=== PATIENT | female | born 1965 | race Caucasian/White ===

== ENCOUNTER → 2016-08-01 | Outpatient (CLI) | payer MEDICARE, MEDICAID | LOC: WI 11:25 | PROVIDERS: ATTEND Physician Assistant | DX: Z12.31 Encounter for screening mammogram for malignant neoplasm of breast (principal) | CPT/HCPCS: 77067; G0202 ==

== ENCOUNTER → 2016-11-21 | Outpatient (CLI) | payer MEDICARE, MEDICAID ==
--- NOTE | 2016-11-21 15:28 | RADIOLOGY REPORT (SQ) ---
EXAM DESCRIPTION: BARIUM SWALLOW ESOPHAGUS COMPLETED DATE/TIME: 11/21/2016 10:13 am REASON FOR STUDY: GERD K21.0 GASTRO-ESOPHAGEAL REFLUX DISEASE WITH ESOPHAGITIS COMPARISON: None. TECHNIQUE: Under fluoroscopic guidance, patient ingested thick and thin barium. Fluoroscopic spot im ages acquired and stored on PACS. 12 MM BARIUM TABLET GIVEN: The patient swallowed a 12 mm barium tablet, which passed easily through t he esophagus and into the stomach without delay. LIMITATIONS: Patient unable to stand for procedure. FLUOROSCOPY TIME: Fluoro time 2.08 minutes 10 images saved to PACS. FINDINGS: NEUROMUSCULAR COORDINATION OF SWALLOW: Normal. No aspiration. ESOPHAGEAL MOTILITY: Mild esophageal dysmotility. ESOPHAGEAL MUCOSA: Normal mucosa without masses or ulceration. GASTRO-ESOPHAGEAL JUNCTION: Questionable small hiatal hernia. No gastroesophageal reflux seen. NON-GI TRACT STRUCTURES: No significant finding. OTHER: No other significant finding. IMPRESSION: MILD ESOPHAGEAL DYSMOTILITY. QUESTIONABLE SMALL HIATAL HERNIA. OTHERWISE UNREMARKABLE STUDY. COMMENT: NONE Quality ID [id number]: Final reports for procedures using fluoroscopy that document radiation exposure eveline elly, or exposure time and number of fluorographic images (if radiation exposure indices are not avail able) TECHNICAL DOCUMENTATION: JOB ID: [id number] [employer]- All Rights Reserved
== END ==
LOC: RAD 09:18
PROVIDERS: ATTEND Physician Assistant
DX: K21.0 Gastro-esophageal reflux disease with esophagitis (principal)
CPT/HCPCS: 74220

== ENCOUNTER → 2016-11-24 | Outpatient (CLI) | payer MEDICARE, MEDICAID ==
--- NOTE | 2016-11-24 13:02 | RADIOLOGY REPORT (SQ) ---
EXAM DESCRIPTION: FOOT LEFT COMPLETE COMPLETED DATE/TIME: 11/24/2016 11:53 am REASON FOR STUDY: PAIN IN LEFT FOOT M79.672 PAIN IN LEFT FOOT COMPARISON: None. NUMBER OF VIEWS: Three views. TECHNIQUE: AP, lateral and oblique radiographic images acquired of the left foot. LIMITATIONS: None. FINDINGS: MINERALIZATION: Normal. BONES: No acute fracture or dislocation. No worrisome bone lesions. JOINTS: No effusions. SOFT TISSUES: Possible hammertoes involving 2nd through 5th digits. OTHER: No other significant finding. IMPRESSION: Possible hammertoes. No acute osseous abnormality is seen. TECHNICAL DOCUMENTATION: JOB ID: [id number] [employer]- All Rights Reserved
== END ==
LOC: OD 11:25
PROVIDERS: ATTEND Physician Assistant
DX: M79.672 Pain in left foot (principal)

== ENCOUNTER 2017-01-08 11:40 | Day surgery (SDC) | payer MEDICARE, MEDICAID ==
[~2017-01-08 11:40] MED LIST: PROPOFOL INJ 200 MG/20 ML VIAL IV ONE
[2017-01-08 13:12] VITALS: BP 128/86
--- NOTE | 2017-01-08 13:24 | Operative Report ---
Operative Report DATE OF SURGERY: 01/08/17 Operative Report: The risks benefits and alternatives of the procedure explained to the patient in detail and informed consent is obtained. A GIF Olympus video scope was inserted into the patient's mouth and hypopharynx, the esophagus is identified intubated and insufflated, the scope was then advanced through the esophagus stomach and duodenum, retroflexion maneuver is done, the esophagus stomach and first and second portions of the duodenum examined PREOPERATIVE DIAGNOSIS: Dysphagia, epigastric pain POSTOPERATIVE DIAGNOSIS: Schatzki's ring status post dilatation. Esophagitis versus Butler's small biopsy obtained. Gastritis small biopsy obtained to rule out Helicobacter pylori OPERATION: EGD with dilation. EGD with biopsy SURGEON: MAXI GASTON ANESTHESIA: LMAC TISSUE REMOVED OR ALTERED: As described above. COMPLICATIONS: None. ESTIMATED BLOOD LOSS: None. INTRAOPERATIVE FINDINGS: As described above. PROCEDURE: Patient tolerated procedure well. No immediate postprocedure complications are noted. Patient discharged in good condition. Discharge date 01/08/2017. Discharge diet: Regular. Discharge activity: Regular. 2-3 week follow-up to discuss findings. Patient is instructed to call the office or proceed to the emergency room should there be any further problems or questions. If negative may need manometry study. We will wait on biopsies.
== END 2017-01-08 13:20 | disposition home or self-care (01) ==
LOC: END 11:40
PROVIDERS: ATTEND Internal Medicine Gastroenterology
PROC: 0DB58ZX Excision of Esophagus, Via Natural or Artificial Opening Endoscopic, Diagnostic (ICD-10-PCS; 2017-01-08)
PROC: 0DB68ZX Excision of Stomach, Via Natural or Artificial Opening Endoscopic, Diagnostic (ICD-10-PCS; principal; 2017-01-08 13:00)
DX: K22.2 Esophageal obstruction (principal); K20.8 Other esophagitis; K29.50 Unspecified chronic gastritis without bleeding; E11.9 Type 2 diabetes mellitus without complications; J45.909 Unspecified asthma, uncomplicated; E03.9 Hypothyroidism, unspecified; I10 Essential (primary) hypertension; G80.9 Cerebral palsy, unspecified; F31.9 Bipolar disorder, unspecified; F41.9 Anxiety disorder, unspecified; R63.4 Abnormal weight loss; Z79.82 Long term (current) use of aspirin; Z79.899 Other long term (current) drug therapy; Z79.51 Long term (current) use of inhaled steroids; Z79.1 Long term (current) use of non-steroidal anti-inflammatories (NSAID); Z79.84 Long term (current) use of oral hypoglycemic drugs; Z88.1 Allergy status to other antibiotic agents; Z79.4 Long term (current) use of insulin; Z68.24 Body mass index [BMI] 24.0-24.9, adult
CPT/HCPCS: 43239; 82962; 88342 ×2; 88302 ×2; J2704; 740

== ENCOUNTER → 2017-07-11 | Outpatient (CLI) | payer MEDICAID, MEDICARE ==
--- NOTE | 2017-07-11 16:39 | RADIOLOGY REPORT (SQ) ---
EXAM DESCRIPTION: U/S THYROID/SFT TISS HD NECK COMPLETED DATE/TIME: 07/11/2017 12:17 pm REASON FOR STUDY: HYPOTHYROIDISM, UNSPECIFIED E03.9 HYPOTHYROIDISM, UNSPECIFIED COMPARISON: None. TECHNIQUE: Dynamic and static blunt-scale images acquired of the thyroid gland. Selected additional c olor/power Doppler images recorded. All images stored to PACS. LIMITATIONS: None. FINDINGS: RIGHT LOBE: Less than 1 cm. No cystic or solid masses. LEFT LOBE: Less than 1 cm. No cystic or solid masses. ISTHMUS: Normal size. Homogeneous echotexture. No cystic or solid masses. OTHER: No other significant finding. IMPRESSION: Atrophic thyroid. TECHNICAL DOCUMENTATION: JOB ID: [id number] [employer]- All Rights Reserved
== END ==
LOC: RAD 09:58
PROVIDERS: ATTEND Physician Assistant
DX: E03.9 Hypothyroidism, unspecified (principal)
CPT/HCPCS: 76536

== ENCOUNTER 2017-08-03 07:46 | Day surgery (SDC) | payer MEDICARE, MEDICAID ==
[2017-08-03] MEDS ORDERED: NA PHOS,M-B/NA PHOS,DI-BA (ADULT) 133 ML ENEMA PR ONE ×2 (09:30→11:00)
[2017-08-03] MEDS ORDERED: PROPOFOL INJ 200 MG/20 ML VIAL IV ONE (10:13)
[2017-08-03] MEDS ORDERED: MIDAZOLAM 2 MG/2 ML INJ ONE (10:13)
[2017-08-03] MEDS ORDERED: MORPHINE SULFATE 10 MG/ML INJ IV PRN (10:42)
[2017-08-03] MEDS ORDERED: ONDANSETRON HCL INJ/PF 4 MG/2 ML SDV IV PRN (10:42)
[2017-08-03] MEDS ORDERED: DIPHENHYDRAMINE HCL 50 MG/ML VIAL IV PRN (10:42)
[2017-08-03] MEDS ORDERED: MEPERIDINE HCL/PF INJ 25 MG/1 ML DISP.SYRIN IV PRN (10:42)
[2017-08-03] MEDS ORDERED: OXYCODONE-ACETAMINOPHEN 5-325 MG TABLET PO PRN ×2 (10:42)
[2017-08-03] MEDS ORDERED: PROMETHAZINE HCL INJ 25 MG/1 ML VIAL IV PRN ×2 (10:42)
[2017-08-03] MEDS ORDERED: FENTANYL CITRATE INJ/PF 100 MCG/2 ML AMPUL IV PRN ×3 (10:42)
--- NOTE | 2017-08-03 11:22 | Operative Report ---
Operative Report DATE OF SURGERY: 08/03/17 Operative Report: The risks, benefits and alternatives of the procedure including risks of bleeding, perforation requiring surgery are explained to the patient in detail and informed consent is obtained. Patient was taken back to the operating room and placed in a left, lateral decubital position. Timeout was called. Propofol medications administered. Rectal examination is done which did not reveal any masses, tears or fissures. An Olympus videoscope was inserted into the patient's rectum. The scope was then carefully advanced all the way to the cecum. The cecum was identified by the usual anatomical landmarks including the ileocecal valve as well as the appendiceal office. Photodocumentation is obtained per scope was then sequentially pulled back via the various segments of the colon including the ascending colon, hepatic flexure, transverse colon, splenic flexure, descending colon and finding to the rectosigmoid portions of the colon. Retroflexion maneuvers performed. Prep is good. PREOPERATIVE DIAGNOSIS: Change in bowel habits rule out colonic stricture POSTOPERATIVE DIAGNOSIS: Mild inflammation noted in the colon status post biopsy rule out lymphocytic, microscopic, collagenous colitis. OPERATION: Colonoscopy with biopsy SURGEON: MAXI GASTON ANESTHESIA: LMAC TISSUE REMOVED OR ALTERED: As noted above. COMPLICATIONS: None. ESTIMATED BLOOD LOSS: None. INTRAOPERATIVE FINDINGS: As noted above. PROCEDURE: Patient tolerated procedure well. No immediate postprocedure complications are noted. Patient discharged in good condition. Discharge date 08/03/2017. Discharge diet: Regular. Discharge activity: Regular. 2-3 week follow-up to discuss findings. Patient is instructed call the office or call the emergency room should there be any further problems or questions. We will wait on pathology.
[2017-08-03 13:06] VITALS: BP 158/74
== END 2017-08-03 12:57 | disposition home or self-care (01) ==
LOC: OROUT 07:46
PROVIDERS: ATTEND Internal Medicine Gastroenterology
PROC: 0DBF8ZX Excision of Right Large Intestine, Via Natural or Artificial Opening Endoscopic, Diagnostic (ICD-10-PCS; principal; 2017-08-03 10:00)
DX: K52.9 Noninfective gastroenteritis and colitis, unspecified (principal); E11.9 Type 2 diabetes mellitus without complications; J45.909 Unspecified asthma, uncomplicated; E03.9 Hypothyroidism, unspecified; I10 Essential (primary) hypertension; G80.9 Cerebral palsy, unspecified; Z79.51 Long term (current) use of inhaled steroids; Z79.82 Long term (current) use of aspirin; Z79.1 Long term (current) use of non-steroidal anti-inflammatories (NSAID); Z79.4 Long term (current) use of insulin; Z79.84 Long term (current) use of oral hypoglycemic drugs; Z79.899 Other long term (current) drug therapy
CPT/HCPCS: 45380; 82962; 88305 ×2; 88313 ×2; J2250; A9270; J2704; 811; J3490

== ENCOUNTER 2017-09-27 11:22 | Emergency (ER) | payer MEDICARE, MEDICAID ==
[2017-09-27 12:51] LABS: ABSOLUTE EOSINOPHILS # (AUTO) 0.3 10^3/uL (0.0-0.6); ABSOLUTE LYMPHOCYTES (AUTO) 2.8 10^3/uL (0.5-4.7); ABSOLUTE MONOCYTES (AUTO) 0.8 10^3/uL (0.1-1.4); ABSOLUTE NEUT (AUTO) 7.5 10^3/uL (1.7-8.2); BASOPHILS % (AUTO) 0.3 % (0-2); EOSINOPHILS % (AUTO) 2.6 % (0-6); HEMATOCRIT 35.8 % (36.0-47.0); HEMOGLOBIN 11.4 g/dL (12.0-15.5); LYMPHOCYTES % (AUTO) 24.5 % (13-45); MEAN CORPUSCULAR HEMOGLOBIN 24.7 pg (27.0-33.4); MEAN CORPUSCULAR HGB CONC 31.9 g/dL (32.0-36.0); MEAN CORPUSCULAR VOLUME 78 fl (80-97); MONOCYTES % (AUTO) 7.1 % (3-13); PLATELET COUNT 237 10^3/uL (150-450); RED BLOOD COUNT 4.62 10^6/uL (3.72-5.28); RED CELL DISTRIBUTION WIDTH 14.2 % (11.5-14.0); SEGMENTED NEUTROPHILS % (AUTO) 65.5 % (42-78); TOTAL CELLS COUNTED % (AUTO) 100 %; WHITE BLOOD COUNT 11.4 10^3/uL (4.0-10.5)
[2017-09-27 13:11] LABS: ANION GAP 13 (5-19); BLOOD UREA NITROGEN 25 mg/dL (7-20); CALCIUM 9.2 mg/dL (8.4-10.2); CARBON DIOXIDE 21 mmol/L (22-30); CHLORIDE 103 mmol/L (98-107); GLUCOSE 148 mg/dL (75-110); SODIUM 137.3 mmol/L (137-145)
[2017-09-27 13:15] LABS: POTASSIUM 6.1 mmol/L (3.6-5.0)
[2017-09-27] MEDS ORDERED: NORMAL SALINE 1000 ML 1,000 ML IV ONE ×4 (13:50→21:43)
[2017-09-27] MEDS ORDERED: ALBUTEROL SULFATE 0.083% NEB 2.5 MG/3 ML AMPUL NEB ONE (14:02)
[2017-09-27] MEDS ORDERED: SODIUM POLYSTYRENE SULFONATE 15 GM/60 ML PO ONE (14:03)
--- NOTE | 2017-09-27 14:16 | ER Document Report ---
ED General - General Chief Complaint: Abnormal Lab Results Stated Complaint: ABNORMAL LABS Time Seen by Provider: 09/27/17 12:21 TRAVEL OUTSIDE OF THE [place] IN LAST 30 DAYS: No - HPI Patient complains to provider of: Elevated potassium Notes: Patient coming in for elevated potassium. Patient has some chronic disability caregiver at bedside states that the patient has recently been on Bactrim for urinary tract infection finished her last antibiotic today. Have basic laboratory studies performed in the PCPs office Dr. Reaves yesterday was found to have an elevated potassium greater than 6 therefore was told to come to the ER for further evaluation. Patient denies any other medical issues resting comfortably asking for something to eat and drink. - Related Data Allergies/Adverse Reactions: cranberry Allergy (Severe, Verified 08/03/17 08:12) VOMITING lamotrigine [From Lamictal] Allergy (Severe, Verified 08/03/17 08:12) Anaphylaxis levofloxacin [From Levaquin] Allergy (Severe, Verified 08/03/17 08:12) Anaphylaxis Past Medical History - Social History Smoking Status: Never Smoker Family History: Reviewed & Not Pertinent Patient has suicidal ideation: No Patient has homicidal ideation: No - Past Medical History Cardiac Medical History: Reports: Hx Hypertension Denies: Hx Coronary Artery Disease, Hx Heart Attack Pulmonary Medical History: Reports: Hx Asthma Denies: Hx Bronchitis, Hx COPD, Hx Pneumonia Neurological Medical History: Denies: Hx Cerebrovascular Accident, Hx Seizures Renal/ Medical History: Denies: Hx Peritoneal Dialysis Musculoskeltal Medical History: Denies Hx Arthritis Past Surgical History: Reports: Hx Hysterectomy - Immunizations Hx Diphtheria, Pertussis, Tetanus Vaccination: No Review of Systems - Review of Systems Constitutional: Other - Elevated potassium EENT: No symptoms reported Cardiovascular: No symptoms reported Respiratory: No symptoms reported Gastrointestinal: No symptoms reported Genitourinary: No symptoms reported Female Genitourinary: No symptoms reported Musculoskeletal: No symptoms reported Skin: No symptoms reported Hematologic/Lymphatic: No symptoms reported Neurological/Psychological: No symptoms reported Physical Exam - Vital signs Vitals: Temp Pulse Resp BP Pulse Ox 97.9 F 104 H 18 113/94 H 99 09/27/17 11:32 09/27/17 11:32 09/27/17 11:32 09/27/17 11:32 09/27/17 11:32 Interpretation: Normal - General General appearance: Appears well, Alert - HEENT Head: Normocephalic, Atraumatic Eyes: Normal Pupils: PERRL - Respiratory Respiratory status: No respiratory distress Chest status: Nontender Breath sounds: Normal Chest palpation: Normal - Cardiovascular Rhythm: Regular Heart sounds: Normal auscultation Murmur: No - Abdominal Inspection: Normal Distension: No distension Bowel sounds: Normal Tenderness: Nontender Organomegaly: No organomegaly - Back Back: Normal, Nontender - Extremities General upper extremity: Nontender. No: Normal inspection - Chronic contractures of the upper and lower extremities General lower extremity: Normal inspection, Nontender - Neurological Neuro grossly intact: Yes Cognition: Normal Marija Coma Scale Eye Opening: Spontaneous Marija Coma Scale Verbal: Oriented Marija Coma Scale Motor: Obeys Commands Marija Coma Scale Total: 15 - Psychological Associated symptoms: Normal affect, Normal mood - Skin Skin Temperature: Warm Skin Moisture: Dry Skin Color: Normal Course - Re-evaluation Re-evalutation: 09/27/17 15:22 Laboratory studies showed potassium at this time 6.1 with no EKG changes. Did discuss with PCP recommended IV hydration Kayexalate and repeat potassium for possible discharge home. Patient agrees with this plan at this time patient has received a liter of fluids and Kayexalate. Currently waiting for repeat - Vital Signs Vital signs: Temp Pulse Resp BP Pulse Ox 98.1 F 104 H 25 H 128/88 H 99 09/28/17 00:00 09/27/17 11:32 09/28/17 00:00 09/28/17 00:00 09/28/17 00:00 - Laboratory Result Diagrams: 09/27/17 12:44 09/27/17 22:00 Laboratory results interpreted by me: 09/27/17 09/27/17 09/27/17 12:44 12:44 15:22 WBC 11.4 H Hgb 11.4 L Hct 35.8 L MCV 78 L MCH 24.7 L MCHC 31.9 L RDW 14.2 H Potassium 6.1 H* Chloride Carbon Dioxide 21 L BUN 25 H Est GFR (Non-Af Amer) 54 L Glucose 148 H Calcium Urine Glucose (UA) 50 H 09/27/17 09/27/17 17:30 22:00 WBC Hgb Hct MCV MCH MCHC RDW Potassium 5.8 H 5.3 H Chloride 108 H Carbon Dioxide 21 L BUN 23 H Est GFR (Non-Af Amer) 53 L Glucose 175 H Calcium 7.9 L Urine Glucose (UA) Discharge - Discharge Clinical Impression: Hyperkalemia Condition: Good Disposition: HOME, SELF-CARE Additional Instructions: Your laboratory results showed an elevated potassium today however the medications that we gave you here in ER were able to lower your potassium to a safe level. Highly recommend she follow-up with your primary care physician in the next 24-48 hours for reevaluation. Return to ER for any other concerns. Referrals: CARA REAVES MD [Primary Care Provider] - Follow up as needed
[2017-09-27 15:52] LABS: APPEARANCE,URINE CLEAR; BILIRUBIN,URINE NEGATIVE (NEGATIVE); COLOR,URINE STRAW; GLUCOSE, URINE 50 mg/dL (NEGATIVE); KETONES,URINE NEGATIVE (NEGATIVE); LEUKOCYTE ESTERASE,URINE NEGATIVE (NEGATIVE); NITRITE,URINE NEGATIVE (NEGATIVE); PROTEIN,URINE NEGATIVE (NEGATIVE); URINE SPECIFIC GRAVITY 1.006; UROBILINOGEN,URINE NEGATIVE mg/dL (<2.0)
[2017-09-27 18:04] LABS: ANION GAP 14 (5-19); BLOOD UREA NITROGEN 23 mg/dL (7-20); CARBON DIOXIDE 22 mmol/L (22-30); CHLORIDE 106 mmol/L (98-107); GLUCOSE 81 mg/dL (75-110); POTASSIUM 5.8 mmol/L (3.6-5.0); SODIUM 142.3 mmol/L (137-145)
--- NOTE | 2017-09-27 18:19 | ER Document Report ---
Doctor's Note Notes: 09/27/17 18:17 Patient was signed out to me around 1600. Her initial potassium was elevated she received IV fluids, albuterol, and Kayexalate. Repeat potassium is only down to 5.8, BUN is essentially unchanged with creatinine actually higher than earlier. Having the nurse reviewed the medication records it appears the patient got 1 L of IV fluid and is receiving the second liter at only 150 mL's per hour. This is probably why she continues to be just as dehydrated as she was several hours ago. The normal saline that is hanging will be increased to wide open. She also will be given a liter of D5 normal saline wide open. 09/27/17 23:11 After the patient did receive IV fluids, the BUN and creatinine have improved, potassium down 5.3. She will be discharged with the original discharge instructions and advised to avoid potassium in her diet, avoid any medications containing potassium, and to drink much more fluids than she has been drinking. I asked the patient specifically about eating bananas, and she says that she likes bananas and does eat a lot of bananas. I told her to specifically avoid eating any bananas, drinking orange juice, or any other fruits that are high in potassium.
[2017-09-27] MEDS ORDERED: DEXTROSE 5%-NORMAL SALINE 1,000 ML IV ONE (18:20)
[2017-09-27 22:42] LABS: ANION GAP 11 (5-19); BLOOD UREA NITROGEN 19 mg/dL (7-20); CALCIUM 7.9 mg/dL (8.4-10.2); CARBON DIOXIDE 21 mmol/L (22-30); CHLORIDE 108 mmol/L (98-107); GLUCOSE 175 mg/dL (75-110); POTASSIUM 5.3 mmol/L (3.6-5.0); SODIUM 139.5 mmol/L (137-145)
--- NOTE | 2017-09-27 23:24 | EKG REPORT ---
SEVERITY:- BORDERLINE ECG - SINUS RHYTHM SHORT WV INTERVAL, ACCELERATED AV CONDUCTION PROBABLE LEFT ATRIAL ABNORMALITY BORDERLINE ST-T ABNORMALITIES, ANT-LAT LEADS : Confirmed by: Jose Alejandro Gleason 27-Sep-2017 23:23:05
[2017-09-28 00:33] VITALS: BP 128/88
== END 2017-09-28 | disposition home or self-care (01) ==
LOC: ER 11:22
DX: E87.5 Hyperkalemia (principal); I10 Essential (primary) hypertension; Z90.710 Acquired absence of both cervix and uterus
CPT/HCPCS: 93005; 94640; 99284; 96360; 96361; 36415; 85025; 80048; 81001; 93010; J7030; A9270

== ENCOUNTER → 2017-10-31 | Outpatient (CLI) | payer MEDICARE, MEDICAID ==
[2017-10-31 14:28] LABS: APPEARANCE,URINE SLIGHTLY-CLOUDY; BILIRUBIN,URINE NEGATIVE (NEGATIVE); COLOR,URINE YELLOW; GLUCOSE, URINE 150 mg/dL (NEGATIVE); KETONES,URINE TRACE mg/dL (NEGATIVE); LEUKOCYTE ESTERASE,URINE NEGATIVE (NEGATIVE); NITRITE,URINE NEGATIVE (NEGATIVE); PROTEIN,URINE >=500 mg/dL (NEGATIVE); URINE SPECIFIC GRAVITY 1.011; UROBILINOGEN,URINE NEGATIVE mg/dL (<2.0)
[2017-10-31 14:36] LABS: ABSOLUTE BASOPHILS # (AUTO) 0.1 10^3/uL (0.0-0.2); ABSOLUTE EOSINOPHILS # (AUTO) 0.2 10^3/uL (0.0-0.6); ABSOLUTE MONOCYTES (AUTO) 0.7 10^3/uL (0.1-1.4); ABSOLUTE NEUT (AUTO) 7.9 10^3/uL (1.7-8.2); BASOPHILS % (AUTO) 0.9 % (0-2); EOSINOPHILS % (AUTO) 1.3 % (0-6); HEMATOCRIT 37.5 % (36.0-47.0); HEMOGLOBIN 12.1 g/dL (12.0-15.5); LYMPHOCYTES % (AUTO) 25.4 % (13-45); MEAN CORPUSCULAR HEMOGLOBIN 24.6 pg (27.0-33.4); MEAN CORPUSCULAR HGB CONC 32.2 g/dL (32.0-36.0); MEAN CORPUSCULAR VOLUME 76 fl (80-97); MONOCYTES % (AUTO) 5.7 % (3-13); RED BLOOD COUNT 4.91 10^6/uL (3.72-5.28); RED CELL DISTRIBUTION WIDTH 14.9 % (11.5-14.0); SEGMENTED NEUTROPHILS % (AUTO) 66.7 % (42-78); TOTAL CELLS COUNTED % (AUTO) 100 %; WHITE BLOOD COUNT 11.8 10^3/uL (4.0-10.5)
[2017-10-31 14:38] LABS: ALANINE AMINOTRANSFERASE 21 U/L (9-52); ALBUMIN 3.7 g/dL (3.5-5.0); ALKALINE PHOSPHATASE 61 U/L (38-126); ANION GAP 15 (5-19); ASPARTATE AMINO TRANSFERASE 23 U/L (14-36); BILIRUBIN,DIRECT 0.2 mg/dL (0.0-0.4); BILIRUBIN,TOTAL 0.2 mg/dL (0.2-1.3); BLOOD UREA NITROGEN 18 mg/dL (7-20); CALCIUM 9.1 mg/dL (8.4-10.2); CARBON DIOXIDE 19 mmol/L (22-30); CHLORIDE 106 mmol/L (98-107); GLUCOSE 74 mg/dL (75-110); PHOSPHORUS 3.8 mg/dL (2.5-4.5); POTASSIUM 5.1 mmol/L (3.6-5.0); SODIUM 140.4 mmol/L (137-145); TOTAL PROTEIN 6.6 g/dL (6.3-8.2)
[2017-10-31 15:17] LABS: PLATELET COUNT 233 10^3/uL (150-450)
== END ==
LOC: OD 12:46
PROVIDERS: ATTEND Internal Medicine Nephrology
DX: E11.9 Type 2 diabetes mellitus without complications (principal); E87.5 Hyperkalemia
CPT/HCPCS: 36415; 80053; 81001; 83605; 83735; 84100; 85025

== ENCOUNTER → 2017-12-07 | Outpatient (CLI) | payer MEDICARE, MEDICAID ==
[2017-12-07 12:05] LABS: HEMATOCRIT 40.8 % (36.0-47.0); HEMOGLOBIN 13.6 g/dL (12.0-15.5); MEAN CORPUSCULAR HEMOGLOBIN 25.7 pg (27.0-33.4); MEAN CORPUSCULAR HGB CONC 33.3 g/dL (32.0-36.0); MEAN CORPUSCULAR VOLUME 77 fl (80-97); PLATELET COUNT 206 10^3/uL (150-450); RED BLOOD COUNT 5.29 10^6/uL (3.72-5.28); RED CELL DISTRIBUTION WIDTH 15.3 % (11.5-14.0); WHITE BLOOD COUNT 7.7 10^3/uL (4.0-10.5)
[2017-12-07 12:22] LABS: ALANINE AMINOTRANSFERASE 21 U/L (9-52); ALBUMIN 3.8 g/dL (3.5-5.0); ALKALINE PHOSPHATASE 89 U/L (38-126); ANION GAP 13 (5-19); ASPARTATE AMINO TRANSFERASE 23 U/L (14-36); BILIRUBIN,DIRECT 0.2 mg/dL (0.0-0.4); BILIRUBIN,TOTAL 0.2 mg/dL (0.2-1.3); BLOOD UREA NITROGEN 15 mg/dL (7-20); CALCIUM 9.7 mg/dL (8.4-10.2); CARBON DIOXIDE 26 mmol/L (22-30); CHLORIDE 99 mmol/L (98-107); CREATINE KINASE 61 U/L (30-135); GLUCOSE 220 mg/dL (75-110); POTASSIUM 4.3 mmol/L (3.6-5.0); SODIUM 138.1 mmol/L (137-145); TOTAL PROTEIN 6.6 g/dL (6.3-8.2)
[2017-12-07 12:51] LABS: APPEARANCE,URINE CLEAR; BILIRUBIN,URINE NEGATIVE (NEGATIVE); COLOR,URINE YELLOW; GLUCOSE, URINE >=500 mg/dL (NEGATIVE); KETONES,URINE NEGATIVE (NEGATIVE); LEUKOCYTE ESTERASE,URINE MODERATE (NEGATIVE); NITRITE,URINE NEGATIVE (NEGATIVE); PROTEIN,URINE 100 mg/dL (NEGATIVE); URINE SPECIFIC GRAVITY 1.007; UROBILINOGEN,URINE NEGATIVE mg/dL (<2.0)
[2017-12-07 13:13] LABS: UR PRO/CREAT RATIO RESULT 6.2 mg/mg (0.0-0.2); URINE CREATININE 19.6 mg/dL (15-278); URINE PROTEIN 121.8 mg/dL (<12)
== END ==
LOC: OD 11:13
PROVIDERS: ATTEND Internal Medicine Nephrology
DX: I12.9 Hypertensive chronic kidney disease with stage 1 through stage 4 chronic kidney disease, or unspecified chronic kidney disease (principal); N18.2 Chronic kidney disease, stage 2 (mild); R80.9 Proteinuria, unspecified; E87.5 Hyperkalemia; E11.9 Type 2 diabetes mellitus without complications
CPT/HCPCS: 36415; 80053; 81001; 82550; 82570; 84156; 85027

== ENCOUNTER → 2018-01-11 | Outpatient (CLI) | payer MEDICARE, MEDICAID ==
[2018-01-11 12:40] LABS: APPEARANCE,URINE SLIGHTLY-CLOUDY; BILIRUBIN,URINE NEGATIVE (NEGATIVE); COLOR,URINE YELLOW; GLUCOSE, URINE >=500 mg/dL (NEGATIVE); KETONES,URINE NEGATIVE (NEGATIVE); LEUKOCYTE ESTERASE,URINE SMALL (NEGATIVE); NITRITE,URINE NEGATIVE (NEGATIVE); PROTEIN,URINE 100 mg/dL (NEGATIVE); UROBILINOGEN,URINE NEGATIVE mg/dL (<2.0)
[2018-01-11 12:48] LABS: ANION GAP 13 (5-19); BLOOD UREA NITROGEN 22 mg/dL (7-20); CALCIUM 9.2 mg/dL (8.4-10.2); CARBON DIOXIDE 23 mmol/L (22-30); CHLORIDE 98 mmol/L (98-107); GLUCOSE 341 mg/dL (75-110); POTASSIUM 4.6 mmol/L (3.6-5.0); SODIUM 134.3 mmol/L (137-145)
[2018-01-11 13:19] LABS: UR PRO/CREAT RATIO RESULT 4.3 mg/mg (0.0-0.2); URINE CREATININE 27.7 mg/dL (15-278)
== END ==
LOC: OD 11:36
PROVIDERS: ATTEND Internal Medicine Nephrology
DX: R80.9 Proteinuria, unspecified (principal); E87.5 Hyperkalemia; E11.9 Type 2 diabetes mellitus without complications
CPT/HCPCS: 36415; 80048; 81001; 82570; 84156; 87086; 87088; 87186

== ENCOUNTER → 2018-04-12 | Outpatient (CLI) | payer MEDICARE, MEDICAID ==
[2018-04-12 12:21] LABS: HEMATOCRIT 37.1 % (36.0-47.0); HEMOGLOBIN 12.5 g/dL (12.0-15.5); MEAN CORPUSCULAR HEMOGLOBIN 26.9 pg (27.0-33.4); MEAN CORPUSCULAR HGB CONC 33.7 g/dL (32.0-36.0); MEAN CORPUSCULAR VOLUME 80 fl (80-97); PLATELET COUNT 265 10^3/uL (150-450); RED BLOOD COUNT 4.63 10^6/uL (3.72-5.28); RED CELL DISTRIBUTION WIDTH 13.8 % (11.5-14.0); WHITE BLOOD COUNT 8.2 10^3/uL (4.0-10.5)
[2018-04-12 12:37] LABS: APPEARANCE,URINE CLEAR; BILIRUBIN,URINE NEGATIVE (NEGATIVE); COLOR,URINE STRAW; GLUCOSE, URINE NEGATIVE (NEGATIVE); KETONES,URINE NEGATIVE (NEGATIVE); LEUKOCYTE ESTERASE,URINE NEGATIVE (NEGATIVE); NITRITE,URINE NEGATIVE (NEGATIVE); PROTEIN,URINE 30 mg/dL (NEGATIVE); URINE SPECIFIC GRAVITY 1.004; UROBILINOGEN,URINE NEGATIVE mg/dL (<2.0)
[2018-04-12 12:48] LABS: ANION GAP 14 (5-19); BLOOD UREA NITROGEN 25 mg/dL (7-20); CALCIUM 9.8 mg/dL (8.4-10.2); CARBON DIOXIDE 23 mmol/L (22-30); CHLORIDE 101 mmol/L (98-107); GLUCOSE 75 mg/dL (75-110); POTASSIUM 5.3 mmol/L (3.6-5.0); SODIUM 138.2 mmol/L (137-145)
[2018-04-12 13:37] LABS: UR PRO/CREAT RATIO RESULT 3.4 mg/mg (0.0-0.2); URINE CREATININE 13.1 mg/dL (15-278); URINE PROTEIN 44.3 mg/dL (<12)
== END ==
LOC: OD 10:45
PROVIDERS: ATTEND Internal Medicine Nephrology
DX: R80.9 Proteinuria, unspecified (principal); E11.9 Type 2 diabetes mellitus without complications
CPT/HCPCS: 36415; 80048; 81001; 82570; 84156; 85027

== ENCOUNTER → 2018-05-10 | Outpatient (CLI) | payer MEDICARE, MEDICAID ==
--- NOTE | 2018-05-10 10:30 | WOMENS IMAGING REPORT ---
EXAM DESCRIPTION: U/S EXTREMITY NONVASCULAR COMP COMPLETED DATE/TIME: 05/10/2018 9:59 am REASON FOR STUDY: LEFT AXILLARY PAIN M79.622 PAIN IN LEFT UPPER ARM COMPARISON: None. EXAM PARAMETERS: TECHNIQUE: Dynamic and static grayscale images acquired of the localized site of cl inical concern and recorded on PACS. Additional selected color Doppler and spectral images recorded. LIMITATIONS: None. FINDINGS: SKIN AND SUBCUTANEOUS TISSUES: There are 2 small normal appearing nodes in the left axilla . No focal masses or fluid collections. DEEP SOFT TISSUES/MUSCLES: No masses. No fluid collections. No edema. VASCULAR: No increased or decreased vascularity. No occlusions. OTHER: No other significant finding. IMPRESSION: NO SOFT TISSUE MASS, FLUID COLLECTION, OR FOREIGN BODY. TECHNICAL DOCUMENTATION: JOB ID: [id number] [employer]- All Rights Reserved Reading location - IP/workstation name: [email or web address]
== END ==
LOC: WI 09:03
PROVIDERS: ATTEND Physician Assistant
DX: M79.622 Pain in left upper arm (principal)
CPT/HCPCS: 76881

== ENCOUNTER → 2018-06-28 | Outpatient (CLI) | payer MEDICARE, MEDICAID ==
[2018-06-28 11:57] LABS: APPEARANCE,URINE CLEAR; BILIRUBIN,URINE NEGATIVE (NEGATIVE); COLOR,URINE STRAW; GLUCOSE, URINE 150 mg/dL (NEGATIVE); KETONES,URINE NEGATIVE (NEGATIVE); LEUKOCYTE ESTERASE,URINE NEGATIVE (NEGATIVE); NITRITE,URINE NEGATIVE (NEGATIVE); PROTEIN,URINE 30 mg/dL (NEGATIVE); URINE SPECIFIC GRAVITY 1.005; UROBILINOGEN,URINE NEGATIVE mg/dL (<2.0)
== END ==
LOC: OD 11:12
PROVIDERS: ATTEND Internal Medicine Nephrology
DX: R30.0 Dysuria (principal)
CPT/HCPCS: 81001; 87086

== ENCOUNTER → 2018-07-01 | Outpatient (CLI) | payer MEDICARE, MEDICAID ==
--- NOTE | 2018-07-01 09:57 | RADIOLOGY REPORT (SQ) ---
EXAM DESCRIPTION: CHEST PA/LATERAL COMPLETED DATE/TIME: 07/01/2018 9:50 am REASON FOR STUDY: ASTHMA COMPARISON: None. EXAM PARAMETERS: NUMBER OF VIEWS: two views TECHNIQUE: Digital Frontal and Lateral radiographic views of the chest acquired. RADIATION DOSE: NA LIMITATIONS: none FINDINGS: LUNGS AND PLEURA: No opacities, masses or pneumothorax. No pleural effusion. MEDIASTINUM AND HILAR STRUCTURES: No masses or contour abnormalities. HEART AND VASCULAR STRUCTURES: Heart normal size. No evidence for failure. BONES: No acute findings. HARDWARE: None in the chest. OTHER: No other significant finding. IMPRESSION: 1. NO SIGNIFICANT RADIOGRAPHIC FINDING IN THE CHEST. TECHNICAL DOCUMENTATION: JOB ID: [id number] [email or web address]- All Rights Reserved Reading location - IP/workstation name: [email or web address]
[2018-07-01 10:12] LABS: ABSOLUTE MONOCYTES (AUTO) 0.5 10^3/uL (0.1-1.4); ABSOLUTE NEUT (AUTO) 3.7 10^3/uL (1.7-8.2); BASOPHILS % (AUTO) 0.2 % (0-2); EOSINOPHILS % (AUTO) 0.1 % (0-6); HEMATOCRIT 38.4 % (36.0-47.0); HEMOGLOBIN 12.8 g/dL (12.0-15.5); LYMPHOCYTES % (AUTO) 32.9 % (13-45); MEAN CORPUSCULAR HEMOGLOBIN 26.3 pg (27.0-33.4); MEAN CORPUSCULAR HGB CONC 33.4 g/dL (32.0-36.0); MEAN CORPUSCULAR VOLUME 79 fl (80-97); MONOCYTES % (AUTO) 7.7 % (3-13); PLATELET COUNT 212 10^3/uL (150-450); RED BLOOD COUNT 4.88 10^6/uL (3.72-5.28); RED CELL DISTRIBUTION WIDTH 13.5 % (11.5-14.0); SEGMENTED NEUTROPHILS % (AUTO) 59.1 % (42-78); TOTAL CELLS COUNTED % (AUTO) 100 %; WHITE BLOOD COUNT 6.2 10^3/uL (4.0-10.5)
[2018-07-01 10:40] LABS: ALANINE AMINOTRANSFERASE 26 U/L (9-52); ALBUMIN 4.1 g/dL (3.5-5.0); ALKALINE PHOSPHATASE 78 U/L (38-126); ANION GAP 6 (5-19); ASPARTATE AMINO TRANSFERASE 17 U/L (14-36); BILIRUBIN,DIRECT 0.2 mg/dL (0.0-0.4); BILIRUBIN,TOTAL 0.2 mg/dL (0.2-1.3); BLOOD UREA NITROGEN 35 mg/dL (7-20); CALCIUM 9.5 mg/dL (8.4-10.2); CARBON DIOXIDE 28 mmol/L (22-30); CHLORIDE 101 mmol/L (98-107); CHOLESTEROL 214.05 mg/dL (0-200); GLUCOSE 240 mg/dL (75-110); POTASSIUM 5.3 mmol/L (3.6-5.0); SODIUM 135.3 mmol/L (137-145); TOTAL PROTEIN 6.6 g/dL (6.3-8.2); TRIGLYCERIDES 426 mg/dL (<150)
[2018-07-01 10:52] LABS: DIRECT LDL 109 mg/dL (<100)
[2018-07-01 10:58] LABS: FREE T4 (FREE THYROXINE) 1.7 ng/dL (0.78-2.19)
[2018-07-01 11:11] LABS: THYROID STIMULATING HORMONE 0.7 uIU/mL (0.47-4.68)
== END ==
LOC: OD 09:20
PROVIDERS: ATTEND Family Medicine
DX: E11.22 Type 2 diabetes mellitus with diabetic chronic kidney disease (principal); I12.9 Hypertensive chronic kidney disease with stage 1 through stage 4 chronic kidney disease, or unspecified chronic kidney disease; N18.2 Chronic kidney disease, stage 2 (mild); E03.9 Hypothyroidism, unspecified; E55.9 Vitamin D deficiency, unspecified; J45.909 Unspecified asthma, uncomplicated; E78.5 Hyperlipidemia, unspecified
CPT/HCPCS: 36415; 71046; 80053; 80061; 82306; 83036; 84439; 84443; 85025

== ENCOUNTER 2018-08-19 13:58 | Inpatient (IN) | payer MEDICARE, MEDICAID ==
--- NOTE | 2018-08-19 14:21 | RADIOLOGY REPORT (SQ) ---
EXAM DESCRIPTION: CT HEAD WITHOUT COMPLETED DATE/TIME: 08/19/2018 2:12 pm REASON FOR STUDY: stroke s/ COMPARISON: None. TECHNIQUE: Axial images acquired through the brain without intravenous contrast. Images reviewed wi th bone, brain and subdural windows. Additional sagittal and coronal reconstructions were generated. Images stored on PACS. All CT scanners at this facility use dose modulation, iterative reconstruction, and/or weight based d osing when appropriate to reduce radiation dose to as low as reasonably achievable (ALARA). [facility]: Dose Right [facility]: CareDose [facility]: Dose Right [facility]: Teradose 4D [facility]: [facility]Park RADIATION DOSE: mGy. LIMITATIONS: None. FINDINGS: VENTRICLES: Normal size and contour. CEREBRUM: No masses. No hemorrhage. No midline shift. No evidence for acute infarction. Normal gra y/white matter differentiation. No areas of low density in the white matter. CEREBELLUM: No masses. No hemorrhage. No alteration of density. No evidence for acute infarction. EXTRAAXIAL SPACES: No fluid collections. No masses. ORBITS AND GLOBE: No intra- or extraconal masses. Normal contour of globe without masses. CALVARIUM: No fracture. PARANASAL SINUSES: No fluid or mucosal thickening. SOFT TISSUES: No mass or hematoma. OTHER: No other significant finding. IMPRESSION: NORMAL BRAIN CT WITHOUT CONTRAST. EVIDENCE OF ACUTE STROKE: NO. COMMENT: Quality ID # [id number]: Final reports with documentation of one or more dose reduction techniques (e.g., Automated exposure control, adjustment of the mA and/or kV according to patient size, use of iterative reconstruction technique) TECHNICAL DOCUMENTATION: JOB ID: [id number] [employer]- All Rights Reserved Reading location - IP/workstation name: [email or web address]
--- NOTE | 2018-08-19 14:22 | RADIOLOGY REPORT (SQ) ---
EXAM DESCRIPTION: CHEST SINGLE VIEW COMPLETED DATE/TIME: 08/19/2018 2:13 pm REASON FOR STUDY: stroke s/ COMPARISON: 07/01/2018. EXAM PARAMETERS: NUMBER OF VIEWS: One view. TECHNIQUE: Single frontal radiographic view of the chest acquired. RADIATION DOSE: NA LIMITATIONS: None. FINDINGS: LUNGS AND PLEURA: No opacities, masses or pneumothorax. No pleural effusion. MEDIASTINUM AND HILAR STRUCTURES: No masses. Contour normal. HEART AND VASCULAR STRUCTURES: Heart normal in size. Normal vasculature. BONES: No acute findings. HARDWARE: None in the chest. OTHER: No other significant finding. IMPRESSION: NO ACUTE RADIOGRAPHIC FINDING IN THE CHEST. TECHNICAL DOCUMENTATION: JOB ID: [id number] [employer]- All Rights Reserved Reading location - IP/workstation name: [email or web address]
[2018-08-19] MEDS ORDERED: DEXTROSE 50%-WATER 25 GM/50 ML DISP.SYRIN IV ONE (14:30)
[2018-08-19] MEDS ORDERED: NORMAL SALINE 1000 ML 1,000 ML IV ONE (14:31)
--- NOTE | 2018-08-19 14:32 | ER Document Report ---
ED General - General Chief Complaint: Altered Mental Status Stated Complaint: POSSIBLE STROKE Time Seen by Provider: 08/19/18 14:05 Mode of Arrival: Medic Information source: Relative Cannot obtain history due to: Mentally challenged Notes: According to the caregiver, around 12:50 PM today, patient became incoherent with speech was altered. She called EMS and when EMS arrived her blood sugar was 71. The caregiver said the patient did not eat well today. Patient is a diabetic and is taking diabetic medication. Patient is also mentally challenged and could not give history. Her who is in the room also said this supplement in the past due to her sugar dropping. Patient was given glucagon by EMS prior to arrival to the ED. The patient's caregiver Ms. Elba Du who is at the patient's bedside in the emergency room said the patient is back to her b aseline. TRAVEL OUTSIDE OF THE [place] IN LAST 30 DAYS: No - HPI Onset: Just prior to arrival Onset/Duration: Sudden Quality of pain: No pain Severity: None Pain Level: Denies Associated symptoms: None Exacerbated by: Denies Relieved by: Denies Similar symptoms previously: Yes - Due to hypoglycemia. Recently seen / treated by doctor: No - Related Data Allergies/Adverse Reactions: cranberry Allergy (Severe, Verified 08/03/17 08:12) VOMITING lamotrigine [From Lamictal] Allergy (Severe, Verified 08/03/17 08:12) Anaphylaxis levofloxacin [From Levaquin] Allergy (Severe, Verified 08/03/17 08:12) Anaphylaxis Past Medical History - Social History Smoking Status: Unknown if Ever Smoked Family History: Reviewed & Not Pertinent - Past Medical History Cardiac Medical History: Reports: Hx Hypertension Denies: Hx Coronary Artery Disease, Hx Heart Attack Pulmonary Medical History: Reports: Hx Asthma Denies: Hx Bronchitis, Hx COPD, Hx Pneumonia Neurological Medical History: Denies: Hx Cerebrovascular Accident, Hx Seizures Renal/ Medical History: Denies: Hx Peritoneal Dialysis Musculoskeletal Medical History: Denies Hx Arthritis Past Surgical History: Reports: Hx Hysterectomy - Immunizations Hx Diphtheria, Pertussis, Tetanus Vaccination: No Review of Systems - Review of Systems -: Yes ROS unobtainable due to patient's medical condition -: Yes All other systems reviewed and negative - Patient is mentally challenged and cannot give a medical history. Physical Exam - Vital signs Vitals: Pulse Resp BP Pulse Ox 87 20 130/78 H 100 03/11/19 14:02 08/19/18 14:02 08/19/18 14:02 08/19/18 14:02 Interpretation: Normal - General General appearance: Appears well, Alert In distress: None - HEENT Head: Normocephalic, Atraumatic Eyes: Normal Pupils: PERRL - Respiratory Respiratory status: No respiratory distress Chest status: Nontender Breath sounds: Normal Chest palpation: Normal - Cardiovascular Rhythm: Regular Heart sounds: Normal auscultation Murmur: No - Abdominal Inspection: Normal Distension: No distension Bowel sounds: Normal Tenderness: Nontender Organomegaly: No organomegaly - Back Back: Normal, Nontender - Extremities General upper extremity: Normal inspection, Nontender, Normal color, Normal ROM, Normal temperature General lower extremity: Normal inspection, Nontender, Normal color, Normal ROM, Normal temperature, Normal weight bearing. No: Juliann's sign - Neurological Neuro grossly intact: Yes Cognition: Normal Orientation: AAOx4 Marija Coma Scale Eye Opening: Spontaneous Maxwell Coma Scale Verbal: Oriented Maxwell Coma Scale Motor: Obeys Commands Marija Coma Scale Total: 15 Speech: Normal Motor strength normal: LUE, RUE, LLE, RLE Sensory: Normal - Psychological Associated symptoms: Normal affect, Normal mood - Skin Skin Temperature: Warm Skin Moisture: Dry Skin Color: Normal Course - Vital Signs Vital signs: Temp Pulse Resp BP Pulse Ox 98.4 F 85 23 H 128/72 H 97 08/19/18 19:07 08/19/18 19:07 08/19/18 20:00 08/19/18 20:00 08/19/18 20:00 - Laboratory Result Diagrams: 08/19/18 14:45 08/19/18 14:45 Laboratory results interpreted by me: 08/19/18 08/19/18 08/19/18 14:17 14:45 14:45 MCV 79 L MCH 26.7 L RDW 14.6 H Sodium 136.8 L Potassium 5.4 H BUN 29 H Glucose 145 H POC Glucose 133 H Urine Protein 08/19/18 15:37 MCV MCH RDW Sodium Potassium BUN Glucose POC Glucose Urine Protein 30 H - Diagnostic Test Radiology reviewed: Reports reviewed - EKG Interpretation by Me EKG shows normal: Sinus rhythm Rate: Normal - 85 Rhythm: NSR When compared to previous EKG there are: No significant change Additional EKG results interpreted by me: 08/19/18 14:48 Diffused T wave abnormalities which is unchanged from prior old EKG on 09/27/2017. - Consults Dr Mick Puga Time consulted: 16:45 Reason for consultation: 08/19/18 16:51 Dr Puga wants patient admitted to [facility] and obtain MRI and MRA of the head. Consulted provider: will see as inpatient Critical Care Note - Critical Care Note Total time excluding time spent on procedures (mins): 40 Discharge - Discharge Clinical Impression: Hypoglycemia Altered mental status Qualifiers: Altered mental status type: unspecified Qualified Code(s): R41.82 - Altered mental status, unspecified Hypertension Qualifiers: Hypertension type: unspecified Qualified Code(s): I10 - Essential (primary) hypertension Condition: Stable Disposition: ADMITTED INPATIENT Admitting Provider: Edd Unit Admitted: [facility]
[2018-08-19] MEDS ORDERED: ASPIRIN 81 MG TABLET, CHEWABLE PO ONE (14:59)
[2018-08-19 15:05] LABS: PROTHROMBIN TIME 12.7 SEC (11.4-15.4)
[2018-08-19 15:06] LABS: PARTIAL THROMBOPLASTIN TIME 26.8 SEC (23.5-35.8)
[2018-08-19 15:08] LABS: ABSOLUTE LYMPHOCYTES (AUTO) 2.5 10^3/uL (0.5-4.7); ABSOLUTE MONOCYTES (AUTO) 0.7 10^3/uL (0.1-1.4); BASOPHILS % (AUTO) 0.2 % (0-2); EOSINOPHILS % (AUTO) 0.1 % (0-6); HEMATOCRIT 37.1 % (36.0-47.0); HEMOGLOBIN 12.5 g/dL (12.0-15.5); LYMPHOCYTES % (AUTO) 24.8 % (13-45); MEAN CORPUSCULAR HEMOGLOBIN 26.7 pg (27.0-33.4); MEAN CORPUSCULAR HGB CONC 33.8 g/dL (32.0-36.0); MEAN CORPUSCULAR VOLUME 79 fl (80-97); MONOCYTES % (AUTO) 6.5 % (3-13); PLATELET COUNT 218 10^3/uL (150-450); RED BLOOD COUNT 4.69 10^6/uL (3.72-5.28); RED CELL DISTRIBUTION WIDTH 14.6 % (11.5-14.0); SEGMENTED NEUTROPHILS % (AUTO) 68.4 % (42-78); TOTAL CELLS COUNTED % (AUTO) 100 %; WHITE BLOOD COUNT 10.2 10^3/uL (4.0-10.5)
[2018-08-19 15:27] LABS: ALANINE AMINOTRANSFERASE 17 U/L (9-52); ALBUMIN 4.1 g/dL (3.5-5.0); ALKALINE PHOSPHATASE 52 U/L (38-126); ANION GAP 11 (5-19); ASPARTATE AMINO TRANSFERASE 20 U/L (14-36); BILIRUBIN,DIRECT 0.3 mg/dL (0.0-0.4); BILIRUBIN,TOTAL 0.3 mg/dL (0.2-1.3); BLOOD UREA NITROGEN 29 mg/dL (7-20); CALCIUM 10.2 mg/dL (8.4-10.2); CARBON DIOXIDE 26 mmol/L (22-30); CHLORIDE 100 mmol/L (98-107); CREATINE KINASE 57 U/L (30-135); GLUCOSE 145 mg/dL (75-110); POTASSIUM 5.4 mmol/L (3.6-5.0); SODIUM 136.8 mmol/L (137-145); TOTAL PROTEIN 6.5 g/dL (6.3-8.2)
[2018-08-19 15:38] LABS: CREATINE KINASE MB 1.88 ng/mL (<4.55)
[2018-08-19 15:45] LABS: TROPONIN I < 0.012 ng/mL
[2018-08-19 15:51] LABS: APPEARANCE,URINE CLEAR; BILIRUBIN,URINE NEGATIVE (NEGATIVE); COLOR,URINE YELLOW; GLUCOSE, URINE NEGATIVE (NEGATIVE); KETONES,URINE NEGATIVE (NEGATIVE); LEUKOCYTE ESTERASE,URINE NEGATIVE (NEGATIVE); NITRITE,URINE NEGATIVE (NEGATIVE); PROTEIN,URINE 30 mg/dL (NEGATIVE); URINE SPECIFIC GRAVITY 1.006; UROBILINOGEN,URINE NEGATIVE mg/dL (<2.0)
[2018-08-19] MEDS ORDERED: CLONIDINE HCL 0.1 MG TABLET PO ONE (16:09)
[2018-08-19] MEDS ORDERED: ACETAMINOPHEN 325 MG TABLET PO PRN (16:42)
[2018-08-19] MEDS ORDERED: HYDRALAZINE HCL INJ/PF 20 MG/1 ML SDV IV PRN (17:00)
[2018-08-19] MEDS ORDERED: DEXTROSE 40% GEL 15 GM TUBE PO PRN ×2 (17:01)
[2018-08-19] MEDS ORDERED: DEXTROSE 50%-WATER 25 GM/50 ML DISP.SYRIN IV PRN ×2 (17:01)
[2018-08-19] MEDS ORDERED: GLUCAGON,HUMAN RECOMB 1 MG INJ IM PRN (17:01)
[2018-08-19] MEDS ORDERED: NORMAL SALINE 1000 ML 1,000 ML IV PRN (17:30)
--- NOTE | 2018-08-19 17:32 | PDOC H&P ---
History of Present Illness Admission Date/PCP: CARA REAVES MD Patient complains of: Slurred speech altered mental status History of Present Illness: YOKO HEWITT is a 53 year old female This is a 53-year-old female with a significant history of the cerebral palsy history of the bipolar disorder history of the chronic kidney disease stage III and proteinuria history of the type 2 diabetes mellitus insulin-dependent with history of the hyperlipidemia and multiple comorbidity came to the emergency department by EMS because the patient's was incoherent and the patient's was slurred speech and the EMS check the blood sugar was 70 and then give her something orally and the patient is brought to the ER where initial head CT was negative and patient is back to the normal ER physician discussed the neurology in [place] and suggest to admit for observations for rule out TIA is very hard to tell what the patient was cerebral palsy and spasticity for the neuro exams Patients also see her Dr. Garg for chronic kidney disease Initial patient's blood pressure was 130 in the emergency department then noticed the blood pressures go up to 200 patient's otherwise denied any chest pain to than any shortness of the breath Patient was giving the clonidine 1 dose in the ER The patient's recent hemoglobin A1c is 6.0 Patient is currently insulin-dependent diabetes Patient's LDL is also on goal Patient's last creatinine my office was 1.16 Past Medical History Cardiac Medical History: Reports: Hyperlipidema, Hypertension Denies: Coronary Artery Disease, Myocardial Infarction Pulmonary Medical History: Reports: Asthma Denies: Bronchitis, Chronic Obstructive Pulmonary Disease (COPD), Pneumonia Neurological Medical History: Denies: Seizures Endocrine Medical History: Reports: Diabetes Mellitus Type 2 Renal/ Medical History: Reports: Chronic Kidney Disease GI Medical History: Reports: Gastroesophageal Reflux Disease Musculoskeltal Medical History: Denies: Arthritis Psychiatric Medical History: Reports: Bipolar Disorder, Depression, General Anxiety Disorder Hematology: Denies: Anemia Past Surgical History Past Surgical History: Reports: Hysterectomy Social History Information Source: Patient, Legal Guardian Lives with: Family Smoking Status: Never Smoker Frequency of Alcohol Use: None Hx Recreational Drug Use: No Family History Family History: Reviewed & Not Pertinent Parental Family History Reviewed: Yes Children Family History Reviewed: Yes Sibling(s) Family History Reviewed.: Yes Medication/Allergy Home Medications: Albuterol Sulfate 4 mg PO QAM 05/08/16 Dantrolene Sodium [Dantrium] 50 mg PO BID 05/08/16 Diazepam 2 mg PO BID 05/08/16 Estradiol 2 mg PO QAM 05/08/16 Levothyroxine Sodium 112 mcg PO QAM 05/08/16 Losartan Potassium 50 mg PO QAM 05/08/16 Trazodone HCl 100 mg PO QHS 05/08/16 Prednisolone Acetate [Inflamase 1% Oph Susp 5 ml] 1 drop OS BID 05/09/16 Aspirin [Aspirin EC] 81 mg PO DAILY 01/08/17 Celecoxib [Celebrex 200 mg Capsule] 200 mg PO Q12 01/08/17 Cholecalciferol (Vitamin D3) [Vitamin D] 50,000 unit PO .QWEEKLY 01/08/17 Cyanocobalamin (Vitamin B-12) [Vitamin B-12] 500 mcg PO DAILY 01/08/17 Desvenlafaxine Succinate [Pristiq ER 100 mg Tab.sr] 100 mg PO DAILY 01/08/17 Ezetimibe [Zetia 10 mg Tablet] 10 mg PO DAILY 01/08/17 Ferrous Sulfate [Iron] 325 mg PO DAILY 01/08/17 Fluticasone Propionate [Flonase Nasal [place] 50 Mcg/[place] 16 gm] 2 sprays NASL Q12 01/08/17 Insulin Glargine,Hum.rec.anlog [Lantus Solostar] 28 unit SQ DAILY 01/08/17 Levocetirizine Dihydrochloride [Xyzal] 5 mg PO DAILY 01/08/17 Linagliptin [Tradjenta] 5 mg PO QAM 01/08/17 Lurasidone HCl [Latuda] 20 mg PO QPM 01/08/17 Metformin HCl [Metformin HCl ER] 1,000 mg PO BID 01/08/17 Wilson-3 Fatty Acids/Fish Oil [Fish Oil 1,000 Mg Capsule] 1 each PO DAILY 01/08/17 Simvastatin 20 mg PO QHS 01/08/17 Dexlansoprazole [Dexilant 30 mg Capsule] PO DAILY 08/03/17 Allergies/Adverse Reactions: cranberry Allergy (Severe, Verified 08/03/17 08:12) VOMITING lamotrigine [From Lamictal] Allergy (Severe, Verified 08/03/17 08:12) Anaphylaxis levofloxacin [From Levaquin] Allergy (Severe, Verified 08/03/17 08:12) Anaphylaxis Review of Systems Constitutional: ABSENT: chills, fever(s), headache(s), weight gain, weight loss Eyes: ABSENT: visual disturbances Ears: ABSENT: hearing changes Cardiovascular: ABSENT: chest pain, dyspnea on exertion, edema, orthropnea, palpitations Respiratory: ABSENT: cough, hemoptysis Gastrointestinal: ABSENT: abdominal pain, constipation, diarrhea, hematemesis, hematochezia, nausea, vomiting Genitourinary: ABSENT: dysuria, hematuria Musculoskeletal: ABSENT: joint swelling Integumentary: ABSENT: rash, wounds Neurological: ABSENT: abnormal gait, abnormal speech, confusion, dizziness, focal weakness, syncope Psychiatric: ABSENT: anxiety, depression, homidical ideation, suicidal ideation Endocrine: ABSENT: cold intolerance, heat intolerance, menstrual abnormalities, polydipsia, polyuria Hematologic/Lymphatic: ABSENT: easy bleeding, easy bruising, lymphadenopathy Physical Exam Vital Signs: Temp Pulse Resp BP Pulse Ox 82 15 189/162 H 97 08/19/18 14:02 08/19/18 15:51 08/19/18 15:51 08/19/18 15:51 Intake & Output 08/18/18 08/19/18 08/20/18 06:59 06:59 06:59 Weight 61 kg Physical Exam: CP posture with some spasticity General appearance: PRESENT: no acute distress, well-developed Head exam: PRESENT: atraumatic, normocephalic Eye exam: PRESENT: conjunctiva pink, EOMI, PERRLA. ABSENT: scleral icterus Ear exam: PRESENT: normal external ear exam Mouth exam: PRESENT: moist, tongue midline Neck exam: PRESENT: full ROM. ABSENT: carotid bruit, JVD, lymphadenopathy, thyromegaly Respiratory exam: PRESENT: clear to auscultation mckenna Cardiovascular exam: PRESENT: RRR. ABSENT: diastolic murmur, rubs, systolic murmur Pulses: PRESENT: normal dorsalis pedis pul, +2 pedal pulses bilateral Vascular exam: PRESENT: normal capillary refill GI/Abdominal exam: PRESENT: normal bowel sounds, soft. ABSENT: distended, guarding, mass, organolmegaly, rebound, tenderness Rectal exam: PRESENT: deferred Neurological exam: PRESENT: alert, awake, oriented to person, oriented to place, oriented to time, oriented to situation. ABSENT: motor sensory deficit Additional comments: Patient has spasticity from the cerebral palsy Psychiatric exam: PRESENT: appropriate affect, normal mood. ABSENT: homicidal ideation, suicidal ideation Skin exam: PRESENT: dry, intact, warm. ABSENT: cyanosis, rash Results Laboratory Results: 08/19/18 14:45 08/19/18 14:45 08/19/18 08/19/18 03 14:45 14:45 15:37 WBC 10.2 RBC 4.69 Hgb 12.5 Hct 37.1 MCV 79 L MCH 26.7 L MCHC 33.8 RDW 14.6 H Plt Count 218 Seg Neutrophils % 68.4 Lymphocytes % 24.8 Monocytes % 6.5 Eosinophils % 0.1 Basophils % 0.2 Absolute Neutrophils 7.0 Absolute Lymphocytes 2.5 Absolute Monocytes 0.7 Absolute Eosinophils 0.0 Absolute Basophils 0.0 Sodium 136.8 L Potassium 5.4 H Chloride 100 Carbon Dioxide 26 Anion Gap 11 BUN 29 H Creatinine 0.96 Est GFR ( Amer) > 60 Est GFR (Non-Af Amer) > 60 Glucose 145 H Calcium 10.2 Total Bilirubin 0.3 AST 20 ALT 17 Alkaline Phosphatase 52 Total Protein 6.5 Albumin 4.1 Urine Color YELLOW Urine Appearance CLEAR Urine pH 7.0 Ur Specific [place] 1.006 Urine Protein 30 H Urine Glucose (UA) NEGATIVE Urine Ketones NEGATIVE Urine Blood NEGATIVE Urine Nitrite NEGATIVE Ur Leukocyte Esterase NEGATIVE Urine WBC (Auto) 0 Urine RBC (Auto) 0 08/19/18 08/19/18 14:45 14:45 Creatine Kinase 57 CK-MB (CK-2) 1.88 Troponin I < 0.012 Impressions: Chest X-Ray 08/19/18 14:02 IMPRESSION: NO ACUTE RADIOGRAPHIC FINDING IN THE CHEST. Head CT 08/19/18 14:02 IMPRESSION: NORMAL BRAIN CT WITHOUT CONTRAST. EVIDENCE OF ACUTE STROKE: NO. Assessment & Plan - Diagnosis (1) Transient ischemic attack Is this a current diagnosis for this admission?: Yes Plan: Not sure very hard to tell because of the patient underlying cerebral palsy with the spasticity Patient initial CT of the head was negative We will put the patient and TIA protocol will get the MRI of the head and MRA if is difficult to do due to spasticity we will get the CT angiogram of the head and neck (2) Type 2 diabetes mellitus Is this a current diagnosis for this admission?: Yes Plan: Will continues a sliding scale with the [facility] protocol will be cut down the patient insulin by the A1c is well under control to prevent hypoglycemia (3) Hypertensive urgency Is this a current diagnosis for this admission?: Yes Plan: Patient is currently alert awake denied any complaints will get the MRI of the head if there is no sign of any stroke we will slowly reduce the patient's blood pressures with using the labetalol and hydralazine (4) Hyperlipidemia Qualifiers: Hyperlipidemia type: unspecified Qualified Code(s): E78.5 - Hyperlipidemia, unspecified Is this a current diagnosis for this admission?: Yes (5) Cerebral palsy Qualifiers: Cerebral palsy type: spastic quadriplegic Qualified Code(s): G80.0 - Spastic quadriplegic cerebral palsy Is this a current diagnosis for this admission?: Yes (6) Bipolar disorder Qualifiers: Active/Remission status: remission status unspecified Qualified Code(s): F31.9 - Bipolar disorder, unspecified Is this a current diagnosis for this admission?: Yes Plan: Is currently see the psych (7) Gastroesophageal reflux disease Qualifiers: Esophagitis presence: without esophagitis Qualified Code(s): K21.9 - Gastro-esophageal reflux disease without esophagitis Is this a current diagnosis for this admission?: Yes (8) Altered mental status Qualifiers: Altered mental status type: unspecified Qualified Code(s): R41.82 - Altered mental status, unspecified Is this a current diagnosis for this admission?: Yes Plan: Likely due to the related to the hypoglycemia will rule out any neuro events (9) Hypoglycemia Is this a current diagnosis for this admission?: Yes Plan: Down the patient insulin (10) Renal failure Qualifiers: Renal failure chronicity: acute on chronic Chronic kidney disease stage: stage 3 (moderate) Is this a current diagnosis for this admission?: Yes Plan: Give IV fluid Consult to nephrology Correct the potassiums - Time Time Spent: 50 to 70 Minutes Medications reviewed and adjusted accordingly: Yes Anticipated discharge: Home Within: Other - Inpatient Certification Based on my medical assessment, after consideration of the patient's comorbidities, presenting symptoms, or acuity I expect that the services needed warrant INPATIENT care.: Yes I certify that my determination is in accordance with my understanding of Medicare's requirements for reasonable and necessary INPATIENT services [42 CFR 412.3e].: Yes Medical Necessity: Significant Comorbidiites Make Outpatient Treatment Too Risky , Need For IV Fluids Post Hospital Care: D/C Construction Scheduler Documentation - Plan Summary Plan Summary: Admit the patient in IMCU See other MD orders Discussed with the patient's family
--- NOTE | 2018-08-19 18:00 | EKG REPORT ---
SEVERITY:- ABNORMAL ECG - SINUS RHYTHM PROBABLE LEFT ATRIAL ABNORMALITY ABNORMAL T, CONSIDER ISCHEMIA, DIFFUSE LEADS : Confirmed by: Akhil Souza MD 19-Aug-2018 18:00:07
[2018-08-19 20:51] LABS: CREATINE KINASE MB 1.49 ng/mL (<4.55)
[2018-08-19 20:55] LABS: TROPONIN I < 0.012 ng/mL
[2018-08-19] MEDS ORDERED: MONTELUKAST SODIUM 10 MG TABLET PO SCH (22:00)
[2018-08-19] MEDS ORDERED: (PENDING PHARMACY ID) (Simvastatin [Simvastatin] 40 MG) PO SCH (22:00)
[2018-08-19] MEDS ORDERED: (PENDING PHARMACY ID) (Trazodone Hcl [Desyrel] 150 MG) PO SCH (22:00)
[2018-08-19] MEDS ORDERED: LURASIDONE HCL 40 MG TABLET PO SCH (22:00)
[2018-08-19] MEDS ORDERED: TRAZODONE HCL 50 MG TABLET PO SCH (22:00)
[2018-08-19] MEDS ORDERED: FENOFIBRATE NANOCRYSTALLIZED 145 MG TABLET PO SCH (22:00)
[2018-08-19] MEDS ORDERED: SIMVASTATIN 40 MG TABLET PO SCH (22:00)
[2018-08-19] MEDS: INSULIN LISPRO 100 UNIT/ML 3 ML VIAL SUBCUT SCH (22:30)
[2018-08-19] MEDS: DANTROLENE SODIUM 25 MG CAPSULE PO SCH (23:03)
[2018-08-19] MEDS: DIAZEPAM 2 MG TABLET PO SCH (23:03)
[2018-08-20 02:27] LABS: ABSOLUTE LYMPHOCYTES (AUTO) 3.2 10^3/uL (0.5-4.7); ABSOLUTE MONOCYTES (AUTO) 0.6 10^3/uL (0.1-1.4); ABSOLUTE NEUT (AUTO) 4.2 10^3/uL (1.7-8.2); BASOPHILS % (AUTO) 0.3 % (0-2); EOSINOPHILS % (AUTO) 0.1 % (0-6); HEMOGLOBIN 12.6 g/dL (12.0-15.5); LYMPHOCYTES % (AUTO) 39.3 % (13-45); MEAN CORPUSCULAR HEMOGLOBIN 26.7 pg (27.0-33.4); MEAN CORPUSCULAR VOLUME 79 fl (80-97); MONOCYTES % (AUTO) 7.9 % (3-13); PLATELET COUNT 217 10^3/uL (150-450); RED BLOOD COUNT 4.71 10^6/uL (3.72-5.28); RED CELL DISTRIBUTION WIDTH 14.7 % (11.5-14.0); SEGMENTED NEUTROPHILS % (AUTO) 52.4 % (42-78); TOTAL CELLS COUNTED % (AUTO) 100 %; WHITE BLOOD COUNT 8.1 10^3/uL (4.0-10.5)
[2018-08-20 02:46] LABS: ANION GAP 9 (5-19); BLOOD UREA NITROGEN 26 mg/dL (7-20); CALCIUM 9.9 mg/dL (8.4-10.2); CARBON DIOXIDE 24 mmol/L (22-30); CHLORIDE 104 mmol/L (98-107); CREATINE KINASE 70 U/L (30-135); GLUCOSE 87 mg/dL (75-110); POTASSIUM 4.6 mmol/L (3.6-5.0); SODIUM 137.1 mmol/L (137-145)
[2018-08-20 02:58] LABS: CREATINE KINASE MB 1.49 ng/mL (<4.55)
[2018-08-20 03:03] LABS: TROPONIN I < 0.012 ng/mL
[2018-08-20] MEDS ORDERED: SITAGLIPTIN PHOSPHATE 50 MG TABLET PO SCH (06:00)
[2018-08-20] MEDS ORDERED: LEVOTHYROXINE SODIUM 0.112 MG TABLET PO SCH (06:00)
[2018-08-20] MEDS ORDERED: LEVOTHYROXINE SODIUM 0.025 MG TABLET PO SCH (06:00)
[2018-08-20] MEDS ORDERED: LANSOPRAZOLE 30 MG TAB.RAP.DR PO SCH (06:00)
[2018-08-20] MEDS ORDERED: (PENDING PHARMACY ID) (Linagliptin [Tradjenta] 5 MG) PO SCH (08:00)
[2018-08-20] MEDS ORDERED: ESTRADIOL 2 MG PO SCH (08:00)
[2018-08-20] MEDS ORDERED: PREDNISOLONE ACETATE 1% OPH SUSP 5 ML OS SCH (10:00)
[2018-08-20] MEDS ORDERED: FERROUS SULFATE 325 MG TABLET PO SCH (10:00)
[2018-08-20] MEDS ORDERED: (PENDING PHARMACY ID) (Desvenlafaxine Succinate 100 MG) PO SCH (10:00)
[2018-08-20] MEDS ORDERED: (PENDING PHARMACY ID) (Liraglutide [Victoza 2-Pak] 1.2 MG) SQ SCH (10:00)
[2018-08-20] MEDS ORDERED: (PENDING PHARMACY ID) (Ferrous Sulfate [Iron] 325 MG) PO SCH (10:00)
[2018-08-20] MEDS ORDERED: DANTROLENE SODIUM 50 MG PO SCH (10:00)
[2018-08-20] MEDS ORDERED: LISINOPRIL 5 MG TABLET PO SCH (10:00)
[2018-08-20] MEDS ORDERED: DEXLANSOPRAZOLE 60 MG PO SCH (10:00)
[2018-08-20] MEDS ORDERED: (PENDING PHARMACY ID) (Levothyroxine Sodium [Levothyroxine Sodium] 137 MCG) PO SCH (10:00)
[2018-08-20] MEDS ORDERED: ENOXAPARIN SODIUM INJ 40 MG/0.4 ML DISP.SYRIN SUBCUT SCH (10:00)
[2018-08-20] MEDS ORDERED: INSULIN DETEMIR 100 UNIT/ML 3 ML PEN SUBCUT SCH (10:00)
[2018-08-20] MEDS ORDERED: CETIRIZINE 5 MG TABLET PO SCH (10:00)
[2018-08-20] MEDS ORDERED: (PENDING PHARMACY ID) (Desvenlafaxine Succinate [Pristiq] 50 MG) PO SCH (10:00)
[2018-08-20] MEDS ORDERED: (PENDING PHARMACY ID) (Lisinopril [Zestril] 2.5 MG) PO SCH (10:00)
[2018-08-20] MEDS ORDERED: ASPIRIN 81 MG TABLET, CHEWABLE PO SCH (10:00)
[2018-08-20] MEDS: INSULIN LISPRO 100 UNIT/ML 3 ML VIAL SUBCUT SCH ×2 (10:09→12:20)
[2018-08-20 10:19] LABS: CREATINE KINASE MB 1.52 ng/mL (<4.55)
[2018-08-20 10:20] LABS: TROPONIN I < 0.012 ng/mL
[2018-08-20] MEDS: DANTROLENE SODIUM 25 MG CAPSULE PO SCH (10:40)
[2018-08-20] MEDS: DIAZEPAM 2 MG TABLET PO SCH (10:42)
--- NOTE | 2018-08-20 11:29 | RADIOLOGY REPORT (SQ) ---
EXAM DESCRIPTION: CAROTID DOPPLER COMPLETED DATE/TIME: 08/20/2018 10:44 am REASON FOR STUDY: tia COMPARISON: None. TECHNIQUE: Grayscale ultrasound, Doppler velocity and spectra, and color Doppler images acquired of the extra-cranial carotid and vertebral arteries. Images stored on PACS. LIMITATIONS: None. FINDINGS: RIGHT CAROTID CCA Velocities: Within normal limits. ICA Velocities Within normal limits without elevation to suggest stenosis. Spectra normal. No significant plaque. LEFT CAROTID CCA Velocities: Within normal limits. ICA Velocities Within normal limits without elevation to suggest stenosis. Spectra normal. No significant plaque. VERTEBRAL ARTERIES: Antegrade flow. Normal waveforms. SUBCLAVIAN ARTERIES: No finding. OTHER: No other significant finding. IMPRESSION: NO HEMODYNAMICALLY SIGNIFICANT STENOSIS. COMMENT: Quality ID #[id number]: Velocity criteria are extrapolated from the diameter data as defined by t he Society of Radiologists in Ultrasound Consensus Conference. Radiology 2003: 229; 340-346. TECHNICAL DOCUMENTATION: JOB ID: [id number] [employer]- All Rights Reserved Reading location - IP/workstation name: [email or web address]
--- NOTE | 2018-08-20 13:07 | XCELERA REPORT ---
[address] [address] Transthoracic Echocardiogram Report Name: YOKO HEWITT Age: 53 yrs Gender: Female : 1965 Patient Status: Inpatient Patient Location: [address] [place], [place] [id number] Study Date: 08/20/2018 09:45 AM Height: 64 in Weight: 134 lb BSA: 1.6 m2 Procedure: A complete two-dimensional transthoracic echocardiogram was performed (2D, M-mode, spectral and color flow Doppler). The study was technically adequate with some images being suboptimal in quality. Reason For Study: tia Ordering Physician: CARA REAVES Performed By: Hannah Figueroa Interpretation Summary The left ventricular ejection fraction is normal. There is mild concentric left ventricular hypertrophy. Doppler measurements suggest pseudonormalized left ventricular relaxation, which is associated with grade II/IV or mild to moderate diastolic dysfunction The left ventricle is grossly normal size. Wall motion cannot be accurately commented on, but no definite regional wall motion abnormalities noted. The right ventricular systolic function is normal. The left atrial size is normal. The right atrium is normal. There is a trace to mild amount of mitral regurgitation There is no mitral valve stenosis. No aortic regurgitation is present. There is no aortic valve stenosis There is a trace or physiologic amount of tricuspid regurgitation The aortic root is not well visualized but is probably normal size. The inferior vena cava was not well visualized Minimal pericardial effusion. No definite cardiac source of CVA/TIA noted on this particular trans-thoracic study. May consider mobile cardiac telemetry monitoring (MCT) for ruling out transient AFIB. Consider VIVIANE if clinically indicated. MMode/2D Measurements & Calculations RVDd: 2.6 cm LVIDd: 4.2 cm FS: 32.7 % Ao root diam: 2.0 cm IVSd: 1.1 cm LVIDs: 2.8 cm EDV(Teich): 77.7 ml Ao root area: 3.3 cm2 LVPWd: 1.2 cm ESV(Teich): 29.9 ml EF(Teich): 61.6 % Doppler Measurements & Calculations MV E max arnie: MV dec slope: Ao V2 max: LV V1 max P.8 cm/sec 424.0 cm/sec2 127.8 cm/sec 2.5 mmHg MV A max arnie: MV dec time: 0.16 sec Ao max PG: LV V1 max: 104.4 cm/sec 6.5 mmHg 78.3 cm/sec MV E/A: 0.64 LV dP/dt: 1396 mmHg/s PA V2 max: 92.6 cm/sec PA max P.4 mmHg Left Ventricle The left ventricle is grossly normal size. There is mild concentric left ventricular hypertrophy. The left ventricular ejection fraction is normal. Doppler measurements suggest pseudonormalized left ventricular relaxation, which is associated with grade II/IV or mild to moderate diastolic dysfunction. Wall motion cannot be accurately commented on, but no definite regional wall motion abnormalities noted. Right Ventricle The right ventricle is grossly normal size. There is normal right ventricular wall thickness. The right ventricular systolic function is normal. Atria The right atrium is normal. The left atrial size is normal. Interarterial septum not well visualized and not well dopplered. Cannot comment on ASD/PFO presence. Mitral Valve The mitral valve leaflets are sclerotic, but show no functional abnormalities. There is no mitral valve stenosis. There is a trace to mild amount of mitral regurgitation. Aortic Valve The aortic valve is grossly normal. There is no aortic valve stenosis. No aortic regurgitation is present. Tricuspid Valve The tricuspid valve is not well visualized secondary to technical limitations. There is no tricuspid stenosis. There is a trace or physiologic amount of tricuspid regurgitation. Tricuspid regurgitation jet envelope not well defined to measure RV systolic pressure accurately. Pulmonic Valve The pulmonic valve is not well visualized. Great Vessels The aortic root is not well visualized but is probably normal size. The inferior vena cava was not well visualized. Effusions Minimal pericardial effusion. Incidental Findings No definite cardiac source of CVA/TIA noted on this particular trans-thoracic study. May consider mobile cardiac telemetry monitoring (MCT) for ruling out transient AFIB. Consider VIVIANE if clinically indicated. : CARA REAVES > Jose Alejandro Gleason
[2018-08-20 13:30] VITALS: BP 141/86
--- NOTE | 2018-08-20 16:13 | PDOC DISCHARGE SUMMARY ---
General - Admit/Disc Date/PCP Admission Date/Primary Care Provider: 08/19/18 16:57 CARA REAVES MD Discharge Date: 08/20/18 - Discharge Diagnosis (1) Transient ischemic attack Is this a current diagnosis for this admission?: Yes Summary: Patient CT head and carotid Doppler all negative Patient unable to go for MRI due to the spasticity in her movements Symptoms more likely from the hypoglycemia rather than the true TIA Patient's continues on aspirin and a statin (2) Type 2 diabetes mellitus Is this a current diagnosis for this admission?: Yes Summary: Since currently all stable reduce the Levemir insulins 20 units at night instead of 40 and readjust as outpatient to prevent hypoglycemia while the patient hemoglobin A1c is only 6 (3) Hypertensive urgency Is this a current diagnosis for this admission?: Yes Summary: Patient blood pressure is all stable required to check a manual blood pressure due to this patient spasticity in the ER the recorded initially with the machine which is reading very high but actual blood pressure was all stable (4) Hyperlipidemia Is this a current diagnosis for this admission?: Yes Summary: Adia all stable (5) Cerebral palsy Is this a current diagnosis for this admission?: Yes (6) Bipolar disorder Is this a current diagnosis for this admission?: Yes Summary: Psych (7) Gastroesophageal reflux disease Is this a current diagnosis for this admission?: Yes (8) Altered mental status Is this a current diagnosis for this admission?: Yes Summary: To the hypoglycemia currently all resolved (9) Hypoglycemia Is this a current diagnosis for this admission?: Yes Summary: Discussed with the patient about the hypoglycemia presentations Reduce the insulin at nighttime (10) Renal failure Is this a current diagnosis for this admission?: Yes Summary: All stable - Additional Information Resuscitation Status: Full Code Discharge Diet: Diabetic Discharge Activity: Activity As Tolerated Home Medications: Albuterol Sulfate 4 mg PO QAM 05/08/16 Dantrolene Sodium [Dantrium] 50 mg PO BID 05/08/16 Diazepam 2 mg PO BID 05/08/16 Estradiol 2 mg PO QAM 05/08/16 Prednisolone Acetate [Inflamase 1% Oph Susp 5 ml] 1 drop OS BID 05/09/16 Cholecalciferol (Vitamin D3) [Vitamin D3] 50,000 unit PO .QWEEKLY 01/08/17 Desvenlafaxine Succinate [Pristiq ER 100 mg Tab.sr] 100 mg PO DAILY 01/08/17 Ferrous Sulfate [Iron] 325 mg PO DAILY 01/08/17 Levocetirizine Dihydrochloride [Xyzal] 5 mg PO DAILY 01/08/17 Linagliptin [Tradjenta] 5 mg PO QAM 01/08/17 Lurasidone HCl [Latuda] 20 mg PO QPM 01/08/17 Simvastatin 40 mg PO QHS 01/08/17 Dexlansoprazole [Dexilant 30 mg Capsule] 60 mg PO DAILY 08/03/17 Albuterol Sulfate [Ventolin Hfa 8 gm Mdi (1 Mdi/ER Disp)] 2 puff IH Q4HP PRN 08/19/18 Desvenlafaxine Succinate [Pristiq] 50 mg PO DAILY 08/19/18 Fenofibrate Nanocrystallized [Tricor 145 mg Tablet] 145 mg PO QHS 08/19/18 Insulin Detemir [Levemir Insulin 100 units/mL] 20 unit SUBCUT QAM 08/19/18 Levothyroxine Sodium 137 mcg PO DAILY 08/19/18 Liraglutide [Victoza 2-Stoney] 1.2 mg SQ DAILY 08/19/18 Lisinopril [Zestril] 2.5 mg PO DAILY 08/19/18 Montelukast Sodium [Singulair 10 mg Tablet] 10 mg PO QHS 08/19/18 Trazodone HCl [Desyrel] 150 mg PO QHS 08/19/18 History of Present Illness History of Present Illness: YOKO HEWITT is a 53 year old female This is a 53-year-old female with a significant history of the cerebral palsy history of the bipolar disorder history of the chronic kidney disease stage III and proteinuria history of the type 2 diabetes mellitus insulin-dependent with history of the hyperlipidemia and multiple comorbidity came to the emergency department by EMS because the patient's was incoherent and the patient's was slurred speech and the EMS check the blood sugar was 70 and then give her something orally and the patient is brought to the ER where initial head CT was negative and patient is back to the normal ER physician discussed the neurology in [place] and suggest to admit for observations for rule out TIA is very hard to tell what the patient was cerebral palsy and spasticity for the neuro exams Patients also see her Dr. Garg for chronic kidney disease Initial patient's blood pressure was 130 in the emergency department then noticed the blood pressures go up to 200 patient's otherwise denied any chest pain to than any shortness of the breath Patient was giving the clonidine 1 dose in the ER The patient's recent hemoglobin A1c is 6.0 Patient is currently insulin-dependent diabetes Patient's LDL is also on goal Patient's last creatinine my office was 1.16 Hospital Course Hospital Course: This is a 53-year-old female presenting the emergency department because of the mostly hypoglycemic and altered mental status in the ER physicians start patient have a TIA kind of her symptoms initial workup with a CT head was all negative When I saw the patient's patient was back to the baseline but decided to admit in the hospital for further evaluations Patient carotid Doppler and echocardiogram was all stable Patient unable to go for MRI due to the spasticity and movements Patient unable to do the CT angiograms due to the IV access issue Patient patient's I do not believe any Neurological events mostly from the hypoglycemia Patient is back to the baseline The physical therapy Patient's p.o. intake is good Discussed with the patient Christ and also discussed with the caregiver adjust the insulin and follow as outpatient Physical Exam Vital Signs: Temp Pulse Resp BP Pulse Ox 98.0 F 81 16 141/86 H 95 08/20/18 13:27 08/20/18 13:27 08/20/18 13:27 08/20/18 13:27 08/20/18 13:27 Intake & Output 08/19/18 08/20/18 08/21/18 06:59 06:59 06:59 Intake Total 2000 Output Total 700 Balance 1300 Weight 60.9 kg General appearance: PRESENT: no acute distress, well-developed, well-nourished Head exam: PRESENT: atraumatic, normocephalic Eye exam: PRESENT: conjunctiva pink, EOMI, PERRLA. ABSENT: scleral icterus Ear exam: PRESENT: normal external ear exam Mouth exam: PRESENT: moist, tongue midline Neck exam: PRESENT: full ROM. ABSENT: carotid bruit, JVD, lymphadenopathy, thyromegaly Respiratory exam: PRESENT: clear to auscultation mckenna Cardiovascular exam: PRESENT: RRR. ABSENT: diastolic murmur, rubs, systolic murmur Vascular exam: PRESENT: normal capillary refill GI/Abdominal exam: PRESENT: normal bowel sounds, soft. ABSENT: distended, guarding, mass, organolmegaly, rebound, tenderness Rectal exam: PRESENT: deferred Musculoskeletal exam: PRESENT: ambulatory Neurological exam: PRESENT: alert, awake, oriented to person, oriented to place, oriented to time, oriented to situation. ABSENT: motor sensory deficit Psychiatric exam: PRESENT: appropriate affect, normal mood. ABSENT: homicidal ideation, suicidal ideation Skin exam: PRESENT: dry, intact, warm. ABSENT: cyanosis, rash Results Laboratory Results: 08/20/18 02:19 08/20/18 02:19 08/19/18 08/20/18 08/20/18 14:45 02:19 02:19 WBC 8.1 RBC 4.71 Hgb 12.6 Hct 37.0 MCV 79 L MCH 26.7 L MCHC 34.0 RDW 14.7 H Plt Count 217 Seg Neutrophils % 52.4 Lymphocytes % 39.3 Monocytes % 7.9 Eosinophils % 0.1 Basophils % 0.3 Absolute Neutrophils 4.2 Absolute Lymphocytes 3.2 Absolute Monocytes 0.6 Absolute Eosinophils 0.0 Absolute Basophils 0.0 Sodium 137.1 Potassium 4.6 Chloride 104 Carbon Dioxide 24 Anion Gap 9 BUN 26 H Creatinine 1.09 Est GFR ( Amer) > 60 Est GFR (Non-Af Amer) 53 L Glucose 87 Calcium 9.9 Magnesium 1.7 TSH 1.87 08/19/18 08/19/18 08/19/18 14:45 14:45 20:10 Creatine Kinase 57 55 CK-MB (CK-2) 1.88 Troponin I < 0.012 08/19/18 08/20/18 08/20/18 20:10 02:19 02:19 Creatine Kinase 70 CK-MB (CK-2) 1.49 1.49 Troponin I < 0.012 < 0.012 08/20/18 08/20/18 09:09 09:09 Creatine Kinase 85 CK-MB (CK-2) 1.52 Troponin I < 0.012 Impressions: Chest X-Ray 08/19/18 14:02 IMPRESSION: NO ACUTE RADIOGRAPHIC FINDING IN THE CHEST. Head CT 08/19/18 14:02 IMPRESSION: NORMAL BRAIN CT WITHOUT CONTRAST. EVIDENCE OF ACUTE STROKE: NO. Carotid Doppler Study 08/20/18 00:00 IMPRESSION: NO HEMODYNAMICALLY SIGNIFICANT STENOSIS. Qualifiers - * PATIENT BEING DISCHARGED WITH ANY OF THE FOLLOWING DIAGNOSIS: No VTE patient discharged on overlapping Therapy?: Yes Plan Time Spent: Greater than 30 Minutes - Discussed with the patient and the family with the all plan and the test reports f/u 1 week in office
[2018-08-20] MEDS ORDERED: (PENDING PHARMACY ID) (Lurasidone Hcl [Latuda] 20 MG) PO SCH (18:00)
== END 2018-08-20 14:00 | disposition home health service (06) | DRG 69 ==
LOC: ER 13:58 → EH 16:57 → 3N 22:30
PROVIDERS: ADMIT Family Medicine; ATTEND Family Medicine
DX: G45.9 Transient cerebral ischemic attack, unspecified (principal); I16.0 Hypertensive urgency; I12.9 Hypertensive chronic kidney disease with stage 1 through stage 4 chronic kidney disease, or unspecified chronic kidney disease; E11.22 Type 2 diabetes mellitus with diabetic chronic kidney disease; N18.3 Chronic kidney disease, stage 3 (moderate); K21.9 Gastro-esophageal reflux disease without esophagitis; E78.00 Pure hypercholesterolemia, unspecified; J45.909 Unspecified asthma, uncomplicated; G80.9 Cerebral palsy, unspecified; F31.9 Bipolar disorder, unspecified; F41.1 Generalized anxiety disorder; Z28.21 Immunization not carried out because of patient refusal; Z79.84 Long term (current) use of oral hypoglycemic drugs; Z79.82 Long term (current) use of aspirin; Z79.4 Long term (current) use of insulin; Z79.51 Long term (current) use of inhaled steroids; Z79.52 Long term (current) use of systemic steroids; Z79.899 Other long term (current) drug therapy
CPT/HCPCS: 36415; 70450; 71045; 80048; 80053; 81001; 82550; 82553; 82962; 83735; 84443; 84484; 85025; 85610; 85730; 93005; 93010; 93306; 93880; 96360; 99291; J1650; J1815; J3490; J7030

== ENCOUNTER → 2018-10-10 | Outpatient (CLI) | payer MEDICARE, MEDICAID ==
[2018-10-10 10:56] LABS: HEMATOCRIT 38.4 % (36.0-47.0); HEMOGLOBIN 12.5 g/dL (12.0-15.5); MEAN CORPUSCULAR HGB CONC 32.5 g/dL (32.0-36.0); MEAN CORPUSCULAR VOLUME 80 fl (80-97); PLATELET COUNT 199 10^3/uL (150-450); RED CELL DISTRIBUTION WIDTH 14.1 % (11.5-14.0); WHITE BLOOD COUNT 6.2 10^3/uL (4.0-10.5)
[2018-10-10 11:19] LABS: APPEARANCE,URINE CLEAR; BILIRUBIN,URINE NEGATIVE (NEGATIVE); COLOR,URINE YELLOW; GLUCOSE, URINE >=500 mg/dL (NEGATIVE); KETONES,URINE NEGATIVE (NEGATIVE); LEUKOCYTE ESTERASE,URINE NEGATIVE (NEGATIVE); NITRITE,URINE NEGATIVE (NEGATIVE); PROTEIN,URINE NEGATIVE (NEGATIVE); URINE SPECIFIC GRAVITY 1.005; UROBILINOGEN,URINE NEGATIVE mg/dL (<2.0)
[2018-10-10 11:19] LABS: ANION GAP 12 (5-19); BLOOD UREA NITROGEN 25 mg/dL (7-20); CALCIUM 9.6 mg/dL (8.4-10.2); CARBON DIOXIDE 23 mmol/L (22-30); CHLORIDE 103 mmol/L (98-107); GLUCOSE 203 mg/dL (75-110); POTASSIUM 4.7 mmol/L (3.6-5.0); SODIUM 137.6 mmol/L (137-145)
[2018-10-10 11:46] LABS: URINE CREATININE 13.7 mg/dL (15-278); URINE PROTEIN 40.6 mg/dL (<12)
== END ==
LOC: OD 10:09
PROVIDERS: ATTEND Physician Assistant Medical
DX: E87.5 Hyperkalemia (principal); I12.9 Hypertensive chronic kidney disease with stage 1 through stage 4 chronic kidney disease, or unspecified chronic kidney disease; R80.9 Proteinuria, unspecified; E11.9 Type 2 diabetes mellitus without complications
CPT/HCPCS: 36415; 80048; 81001; 82570; 84156; 85027

== ENCOUNTER → 2019-01-23 | Outpatient (CLI) | payer MEDICARE, MEDICAID ==
[2019-01-23 10:50] LABS: ANION GAP 9 (5-19); BLOOD UREA NITROGEN 26 mg/dL (7-20); CALCIUM 9.7 mg/dL (8.4-10.2); CARBON DIOXIDE 26 mmol/L (22-30); CHLORIDE 101 mmol/L (98-107); GLUCOSE 172 mg/dL (75-110); POTASSIUM 5.3 mmol/L (3.6-5.0)
== END ==
LOC: LAB 10:03
PROVIDERS: ATTEND Family Medicine
DX: E87.5 Hyperkalemia (principal)
CPT/HCPCS: 36415; 80048

== ENCOUNTER → 2019-04-04 | Outpatient (CLI) | payer MEDICARE, MEDICAID ==
[2019-04-04 11:33] LABS: HEMATOCRIT 38.1 % (36.0-47.0); HEMOGLOBIN 12.6 g/dL (12.0-15.5); MEAN CORPUSCULAR HEMOGLOBIN 26.6 pg (27.0-33.4); MEAN CORPUSCULAR VOLUME 81 fl (80-97); PLATELET COUNT 198 10^3/uL (150-450); RED BLOOD COUNT 4.72 10^6/uL (3.72-5.28); WHITE BLOOD COUNT 6.3 10^3/uL (4.0-10.5)
[2019-04-04 11:38] LABS: APPEARANCE,URINE CLEAR; BILIRUBIN,URINE NEGATIVE (NEGATIVE); COLOR,URINE STRAW; GLUCOSE, URINE >=500 mg/dL (NEGATIVE); KETONES,URINE NEGATIVE (NEGATIVE); LEUKOCYTE ESTERASE,URINE NEGATIVE (NEGATIVE); NITRITE,URINE NEGATIVE (NEGATIVE); PROTEIN,URINE NEGATIVE (NEGATIVE); URINE SPECIFIC GRAVITY 1.003; UROBILINOGEN,URINE NEGATIVE mg/dL (<2.0)
[2019-04-04 11:57] LABS: ANION GAP 13 (5-19); BLOOD UREA NITROGEN 24 mg/dL (7-20); CALCIUM 9.5 mg/dL (8.4-10.2); CARBON DIOXIDE 22 mmol/L (22-30); CHLORIDE 102 mmol/L (98-107); GLUCOSE 237 mg/dL (75-110); POTASSIUM 5.9 mmol/L (3.6-5.0)
[2019-04-04 11:58] LABS: UR PRO/CREAT RATIO RESULT 2.2 mg/mg (0.0-0.2); URINE CREATININE 10.7 mg/dL (15-278); URINE PROTEIN 23.5 mg/dL (<12)
== END ==
LOC: OD 10:18
PROVIDERS: ATTEND Physician Assistant Medical
DX: E87.5 Hyperkalemia (principal); R80.9 Proteinuria, unspecified; E87.2 Acidosis; E11.9 Type 2 diabetes mellitus without complications
CPT/HCPCS: 36415; 80048; 81001; 82570; 84156; 85027

== ENCOUNTER → 2019-04-07 | Outpatient (CLI) | payer MEDICARE, MEDICAID | LOC: OD 10:24 | PROVIDERS: ATTEND Physician Assistant Medical | DX: E87.5 Hyperkalemia (principal) | CPT/HCPCS: 36415; 84132 ==

== ENCOUNTER → 2019-10-13 | Outpatient (CLI) | payer MEDICARE, MEDICAID ==
[2019-10-13 10:38] LABS: ABSOLUTE LYMPHOCYTES (AUTO) 2.5 10^3/uL (0.5-4.7); ABSOLUTE MONOCYTES (AUTO) 0.4 10^3/uL (0.1-1.4); ABSOLUTE NEUT (AUTO) 3.2 10^3/uL (1.7-8.2); BASOPHILS % (AUTO) 0.1 % (0-2); EOSINOPHILS % (AUTO) 0.1 % (0-6); HEMATOCRIT 39.4 % (36.0-47.0); HEMOGLOBIN 13.3 g/dL (12.0-15.5); LYMPHOCYTES % (AUTO) 40.9 % (13-45); MEAN CORPUSCULAR HEMOGLOBIN 26.8 pg (27.0-33.4); MEAN CORPUSCULAR HGB CONC 33.8 g/dL (32.0-36.0); MEAN CORPUSCULAR VOLUME 79 fl (80-97); MONOCYTES % (AUTO) 6.7 % (3-13); PLATELET COUNT 219 10^3/uL (150-450); RED BLOOD COUNT 4.97 10^6/uL (3.72-5.28); RED CELL DISTRIBUTION WIDTH 13.7 % (11.5-14.0); SEGMENTED NEUTROPHILS % (AUTO) 52.2 % (42-78); TOTAL CELLS COUNTED % (AUTO) 100 %; WHITE BLOOD COUNT 6.2 10^3/uL (4.0-10.5)
[2019-10-13 10:58] LABS: APPEARANCE,URINE CLEAR; BILIRUBIN,URINE NEGATIVE (NEGATIVE); COLOR,URINE STRAW; GLUCOSE, URINE >=500 mg/dL (NEGATIVE); KETONES,URINE NEGATIVE (NEGATIVE); LEUKOCYTE ESTERASE,URINE NEGATIVE (NEGATIVE); NITRITE,URINE NEGATIVE (NEGATIVE); PROTEIN,URINE NEGATIVE (NEGATIVE); URINE SPECIFIC GRAVITY 1.005; UROBILINOGEN,URINE NEGATIVE mg/dL (<2.0)
[2019-10-13 11:00] LABS: ANION GAP 9 (5-19); BLOOD UREA NITROGEN 42 mg/dL (7-20); CALCIUM 9.2 mg/dL (8.4-10.2); CARBON DIOXIDE 27 mmol/L (22-30); CHLORIDE 97 mmol/L (98-107); GLUCOSE 157 mg/dL (75-110); POTASSIUM 5.3 mmol/L (3.6-5.0)
[2019-10-13 11:19] LABS: UR PRO/CREAT RATIO RESULT 1.9 mg/mg (0.0-0.2); URINE CREATININE 9.5 mg/dL (15-278); URINE PROTEIN 17.6 mg/dL (<12)
== END ==
LOC: OD 10:01
PROVIDERS: ATTEND Physician Assistant Medical
DX: I10 Essential (primary) hypertension (principal); E11.9 Type 2 diabetes mellitus without complications; R80.9 Proteinuria, unspecified; E87.5 Hyperkalemia; E87.2 Acidosis
CPT/HCPCS: 36415; 80048; 81001; 82570; 84156; 85025

== ENCOUNTER → 2019-11-24 | Outpatient (CLI) | payer MEDICARE, MEDICAID ==
--- NOTE | 2019-11-24 11:38 | WOMENS IMAGING REPORT ---
EXAM DESCRIPTION: 3D SCREENING MAMMO BILAT IMAGES COMPLETED DATE/TIME: 11/24/2019 11:19 am REASON FOR STUDY: Z12.31 SCREENING MAMMO Z12.31 ENCNTR SCREEN MAMMOGRAM FOR MALIGNANT NEOPLASM OF B RE COMPARISON: 2016 EXAM PARAMETERS: Standard craniocaudal and mediolateral oblique views of each breast recorded using digital acquisition and breast tomosynthesis. Read with the assistance of CAD. .[facility] - [employer] Dermatologist Version 9.2 LIMITATIONS: None. FINDINGS: Findings present which are benign by mammographic criteria. No suspicious masses, calcific ations or architectural distortion. Pertinent benign findings: Old post lumpectomy surgical changes left breast upper outer quadrant Benign mammographic findings may include one or more of the following: Smooth masses, popcorn/rim/coa rse calcifications, asymmetries, post-procedure changes, and lesions with long-standing stability. IMPRESSION: BENIGN MAMMOGRAPHIC FINDINGS. BIRADS 2 BREAST DENSITY: c. The breasts are heterogeneously dense, which may obscure small masses. BIRAD: ASSESSMENT: 2 BENIGN FINDING(S) RECOMMENDATION: ROUTINE SCREENING COMMENT: The patient has been notified of the results by letter per MQSA requirements. Additional no tification policies are in place for contacting patient with suspicious or incomplete findings. Quality ID #[id number]: [employer] recommends an annual screening mammogram for women aged 40 years or over. This facility utilizes a reminder system to ensure that all patients receive reminder letters, and/or direct phone calls for appointments. This includes reminders for routine scr eening mammograms, diagnostic mammograms, or other Breast Imaging Interventions when appropriate. Th is patient will be placed in the appropriate reminder system. TECHNICAL DOCUMENTATION: FINDING NUMBER: (1) ASSESSMENT: (1) JOB ID: [id number] 2010 [employer]- All Rights Reserved Reading location - IP/workstation name: [email or web address]
== END ==
LOC: WI 10:45
PROVIDERS: ATTEND Specialist
DX: Z12.31 Encounter for screening mammogram for malignant neoplasm of breast (principal)
CPT/HCPCS: 77063; 77067

== ENCOUNTER → 2019-12-03 | Outpatient (CLI) | payer MEDICARE, MEDICAID ==
[2019-12-03 13:40] LABS: ALBUMIN 4.3 g/dL (3.5-5.0); ANION GAP 9 (5-19); BLOOD UREA NITROGEN 32 mg/dL (7-20); CALCIUM 9.6 mg/dL (8.4-10.2); CARBON DIOXIDE 26 mmol/L (22-30); CHLORIDE 101 mmol/L (98-107); GLUCOSE 70 mg/dL (75-110); PHOSPHORUS 3.5 mg/dL (2.5-4.5)
[2019-12-03 14:10] LABS: POTASSIUM 6.2 mmol/L (3.6-5.0)
[2019-12-03 14:11] LABS: ANION GAP 9 (5-19); BLOOD UREA NITROGEN 32 mg/dL (7-20); CALCIUM 9.6 mg/dL (8.4-10.2); CARBON DIOXIDE 26 mmol/L (22-30); CHLORIDE 101 mmol/L (98-107); GLUCOSE 70 mg/dL (75-110)
[2019-12-03 14:13] LABS: POTASSIUM 6.2 mmol/L (3.6-5.0)
== END ==
LOC: OD 12:32
PROVIDERS: ATTEND Physician Assistant Medical
DX: I12.9 Hypertensive chronic kidney disease with stage 1 through stage 4 chronic kidney disease, or unspecified chronic kidney disease (principal); N18.2 Chronic kidney disease, stage 2 (mild); E11.22 Type 2 diabetes mellitus with diabetic chronic kidney disease; E87.5 Hyperkalemia
CPT/HCPCS: 36415; 80048; 80069

== ENCOUNTER → 2019-12-23 | Outpatient (CLI) | payer MEDICARE, MEDICAID ==
[2019-12-23 12:01] LABS: ANION GAP 8 (5-19); BLOOD UREA NITROGEN 36 mg/dL (7-20); CALCIUM 9.4 mg/dL (8.4-10.2); CARBON DIOXIDE 25 mmol/L (22-30); CHLORIDE 100 mmol/L (98-107); GLUCOSE 126 mg/dL (75-110); POTASSIUM 5.9 mmol/L (3.6-5.0)
== END ==
LOC: OD 10:30
PROVIDERS: ATTEND Physician Assistant Medical
DX: I12.9 Hypertensive chronic kidney disease with stage 1 through stage 4 chronic kidney disease, or unspecified chronic kidney disease (principal); N18.3 Chronic kidney disease, stage 3 (moderate); E87.5 Hyperkalemia
CPT/HCPCS: 36415; 80048

== ENCOUNTER → 2020-02-06 | Outpatient (CLI) | payer MEDICARE, MEDICAID ==
[2020-02-06 11:49] LABS: ANION GAP 10 (5-19); BLOOD UREA NITROGEN 28 mg/dL (7-20); CALCIUM 9.1 mg/dL (8.4-10.2); CARBON DIOXIDE 24 mmol/L (22-30); CHLORIDE 102 mmol/L (98-107); GLUCOSE 128 mg/dL (75-110); POTASSIUM 4.8 mmol/L (3.6-5.0)
== END ==
LOC: OD 10:30
PROVIDERS: ATTEND Physician Assistant Medical
DX: N18.3 Chronic kidney disease, stage 3 (moderate) (principal); E87.5 Hyperkalemia
CPT/HCPCS: 36415; 80048

== ENCOUNTER → 2020-03-10 | Outpatient (CLI) | payer MEDICARE, MEDICAID ==
[2020-03-10 10:26] LABS: ABSOLUTE LYMPHOCYTES (AUTO) 2.4 10^3/uL (0.5-4.7); ABSOLUTE MONOCYTES (AUTO) 0.5 10^3/uL (0.1-1.4); ABSOLUTE NEUT (AUTO) 3.4 10^3/uL (1.7-8.2); BASOPHILS % (AUTO) 0.1 % (0-2); EOSINOPHILS % (AUTO) 0.1 % (0-6); HEMATOCRIT 38.1 % (36.0-47.0); HEMOGLOBIN 12.8 g/dL (12.0-15.5); LYMPHOCYTES % (AUTO) 38.9 % (13-45); MEAN CORPUSCULAR HEMOGLOBIN 26.3 pg (27.0-33.4); MEAN CORPUSCULAR HGB CONC 33.7 g/dL (32.0-36.0); MEAN CORPUSCULAR VOLUME 78 fl (80-97); MONOCYTES % (AUTO) 7.2 % (3-13); PLATELET COUNT 223 10^3/uL (150-450); RED BLOOD COUNT 4.88 10^6/uL (3.72-5.28); RED CELL DISTRIBUTION WIDTH 13.6 % (11.5-14.0); SEGMENTED NEUTROPHILS % (AUTO) 53.7 % (42-78); TOTAL CELLS COUNTED % (AUTO) 100 %; WHITE BLOOD COUNT 6.3 10^3/uL (4.0-10.5)
[2020-03-10 10:48] LABS: CHOLESTEROL 163.39 mg/dL (0-200); TRIGLYCERIDES 230 mg/dL (<150)
[2020-03-10 10:58] LABS: DIRECT LDL 92 mg/dL (<100)
== END ==
LOC: OD 09:23
PROVIDERS: ATTEND Physician Assistant
DX: E78.5 Hyperlipidemia, unspecified (principal)
CPT/HCPCS: 36415; 80061; 85025

== ENCOUNTER → 2020-04-21 | Outpatient (CLI) | payer MEDICARE, MEDICAID ==
[2020-04-21 11:25] LABS: APPEARANCE,URINE CLEAR; BILIRUBIN,URINE NEGATIVE (NEGATIVE); COLOR,URINE STRAW; GLUCOSE, URINE >=500 mg/dL (NEGATIVE); KETONES,URINE NEGATIVE (NEGATIVE); LEUKOCYTE ESTERASE,URINE NEGATIVE (NEGATIVE); NITRITE,URINE NEGATIVE (NEGATIVE); PROTEIN,URINE NEGATIVE (NEGATIVE); URINE SPECIFIC GRAVITY 1.008; UROBILINOGEN,URINE NEGATIVE mg/dL (<2.0)
--- OUTSIDE RECORDS SUMMARY | 2020-04-22 18:27 | XMS REPORT ---
:1965 Author Organization [facility] Address [facility] [place] [address] [place] [address] Care Team Providers Name Role Phone Adolph Puga Primary Care Physician Unavailable [facility] Attending Clinician Unavailable Allergies, Adverse Reactions, Alerts Allergy Name Allergy Status Severity Reaction(s) Onset Inactive Treat ing Comments Type Date Date Clinician LEVOFLOXACIN Drug Active U allergy 12-07 00:00: 00 CRANBERRY Drug Active U allergy 12-07 00:00: 00 LAMOTRIGINE Drug Active U allergy 12-07 00:00: 00 LaMICtal TABS LaMICtal Active TABS Levaquin TABS Levaquin Active TABS Medications Ordered Filled Start Stop Current Ordering Indication Dosage Frequency Signature Comments Components Medication Medication Date Date Medication? Clinician (SIG) Name Name Victoza 18 2019-06 Yes Leora MCCAULEY Victoza 18 MG/3ML 06-12 [facility] MG/3ML Subcutaneou 16:17: Subcutaneo s Solution 05 us Pen-injecto Solution r Pen-inject or ADMINISTER 1.8 MG SUBCUTANEO USLY DAILY Quantity: 27 Refills: 0 Leora Quesada MD Start : 12-Apr-2020 Active Jardiance 2019-06 Yes Leora Jardiance 25 MG Oral 0-05 [facility] 25 MG Oral Tablet 10:57: Tablet 58 TAKE 1 TABLET BY MOUTH EVERY DAY. PLEASE STAY HYDRATED WITH WATER WHILE TAKING THIS MEDICATION Quantity: 90 Refills: 1 Leora Quesada MD Start : 15-Mar-2020 Active Tresiba Yes Leora eRad FlexTouch 8-10 [facility] FlexTouch 200 UNIT/ML 12:06: 200 Subcutaneou 15 UNIT/ML s Solution Subcutaneo Pen-injecto us r Solution Pen-inject or INJECT 42 UNITS SUBCUTANEO USLY DAILY DIRECTED Quantity: 3 Refills: 1 Leora Quesada MD Start : 0Active 3 x 3 ML Pen Pen [place] 2019-0 Yes Leora Pen 30G X 5 MM 7- [facility] [place] 00:00: 30G X 5 MM 00 USE TWICE DAILY WITH INSULIN Quantity: 100 Refills: 3 Leora Quesada MD Start : 0Active Victoza 18 2019-0 Paula Corey QD Victoza 18 MG/3ML 7-17 [facility] MG/3ML Subcutaneou 13:34: Subcutaneo s Solution 12 us Pen-injecto Solution r Pen-inject or ADMINISTER 1.8 MG SUBCUTANEO USLY DAILY Quantity: 27 Refills: 0 Leora Quesada MD Start : 0Active Gabapentin 2019-0 Yes Gabapentin 300 MG 6-24 300 MG Capsule 00:00: Capsule (OR) - 00 (OR) - [id number] ivated tivated Quantity: 60 Refills: 0 Start : 0Active Amantadine 2019-0 Yes Robb Amantadine HCl - 100 3-16 Averell HCl - 100 MG Oral 00:00: D.O. MG Oral Tablet 00 Tablet 1/2 tablet qAM for 7 days, then 1 qAM for 7 days, then 1 qAM and one at noon Quantity: 60 Refills: 10 Averell D.O., Robb Start : 0Active Vitamin B12 2019-0 Yes QD Vitamin 1000 MCG 1-17 B12 1000 Oral Tablet 00:00: MCG Oral Extended 00 Tablet Release Extended Release TAKE 1 TABLET DAILY DIRECTED. Refills: 0 Start : 0Active Dexilant 60 2019-0 Yes QD Dexilant MG Oral 1-17 60 MG Oral Capsule 00:00: Capsule Delayed 00 Delayed Release Release TAKE 1 CAPSULE DAILY EVERY MORNING BEFORE BREAKFAST. Refills: 0 Start : 0Active Tresiba 2019-0 Paula Corey Tresiba FlexTouch 1-17 [facility] FlexTouch 200 UNIT/ML 00:00: 200 Subcutaneou 00 UNIT/ML s Solution Subcutaneo Pen-injecto us r Solution Pen-inject or INJECT 42 UNITS SUBCUTANEO USLY DAILY DIRECTED Refills: 0 Leora Quesada MD Start : 0Active 3 x 3 ML Pen Jardiance No Leora Jardiance 25 MG Oral 1-17 [facility] 25 MG Oral Tablet 00:00: Tablet 00 TAKE 1 TABLET BY MOUTH EVERY DAY. PLEASE STAY HYDRATED WITH WATER WHILE TAKING THIS MEDICATION Quantity: 90 Refills: 1 Leora Quesada MD Start : 0Active Veltassa Yes Veltassa 8.4 GM Oral 1-06 8.4 GM Packet 00:00: Oral 00 Packet Quantity: 30 Refills: 0 Start : 16-Jun-2019 Active Synthroid No Leora Synthroid 125 MCG 7-10 [facility] 125 MCG Oral Tablet 00:00: Oral 00 Tablet TAKE 1 TABLET DAILY ON AN EMPTY STOMACH. Quantity: 90 Refills: 1 Leora Quesada MD Start : 9Active Euthyrox No Leora 1 QD Euthyrox 112 MCG 7-10 [facility] 112 MCG Oral Tablet 00:00: Oral 00 Tablet TAKE 1 TABLET DAILY. Quantity: 30 Refills: 0 Leora Quesada MD Start : 9Active Synthroid Yes Leora Synthroid 112 MCG 7-10 [facility] 112 MCG Oral Tablet 00:00: Oral 00 Tablet TAKE 1 TABLET BY MOUTH DAILY ON AN EMPTY STOMACH. Quantity: 90 Refills: 1 Leora Quesada MD Start : 9Active Botox 200 Yes Botox 200 UNIT 7-01 UNIT Injection 00:00: Injection Solution 00 Solution Reconstitut Reconstitu ed arian TO be adminisite red by physician IN clinic for treatment OF cervical d Quantity: 1 Refills: 0 Start : 09-Dec-2018 Active Fenofibrate Yes Fenofibrat 145 MG Oral 6-26 e 145 MG Tablet 00:00: Oral 00 Tablet Quantity: 90 Refills: 0 Start : 9Active Albuterol Yes Albuterol Sulfate 4 5-30 Sulfate 4 MG Oral 00:00: MG Oral Tablet 00 Tablet Quantity: 90 Refills: 0 Start : 9Active Sodium Yes Sodium Bicarbonate 5-28 Bicarbonat 650 MG Oral 00:00: e 650 MG Tablet 00 Oral Tablet TK 1 T PO QD Quantity: 90 Refills: 0 Start : 9Active Lisinopril Yes Lisinopril 2.5 MG Oral 5-24 2.5 MG Tablet 00:00: Oral 00 Tablet Quantity: 90 Refills: 0 Start : 9Active Accu-Chek Yes Accu-Chek Softclix 5-23 Softclix Lancets 00:00: Lancets 00 TEST TID DIRECTED Quantity: 300 Refills: 0 Start : 9Active Accu-Chek Yes Accu-Chek Amaya Plus 5-23 Amaya Plus w/Device 00:00: w/Device Kit 00 Kit TEST TID Quantity: 1 Refills: 0 Start : 9Active Accu-Chek Yes Accu-Chek Amaya Plus 5-23 Amaya Plus In Vitro 00:00: In Vitro Strip 00 Strip TEST TID Quantity: 300 Refills: 0 Start : 9Active Atorvastati Yes Atorvastat n Calcium 5-23 in Calcium 40 MG Oral 00:00: 40 MG Oral Tablet 00 Tablet TK 1 T PO QD Quantity: 60 Refills: 0 Start : 9Active Dantrolene Yes Dantrolene Sodium 50 5-20 Sodium 50 MG Oral 00:00: MG Oral Capsule 00 Capsule TK ONE C PO TID Quantity: 90 Refills: 0 Start : 9Active Levocetiriz Yes Levocetiri ine 5-17 zine Dihydrochlo 00:00: Dihydrochl ride 5 MG 00 oride 5 MG Oral Tablet Oral Tablet Quantity: 90 Refills: 0 Start : 9Active prednisoLON Yes prednisoLO E Acetate 1 5-07 NE Acetate % 00:00: 1 % Ophthalmic 00 Ophthalmic Suspension Suspension Quantity: 10 Refills: 0 Start : 15-Oct-2018 Active diazePAM 2 Yes diazePAM 2 MG Oral 4-29 MG Oral Tablet 00:00: Tablet 00 Quantity: 60 Refills: 0 Start : 9Active Montelukast Yes Montelukas Sodium 10 4-24 t Sodium MG Oral 00:00: 10 MG Oral Tablet 00 Tablet Quantity: 90 Refills: 0 Start : 9Active Desvenlafax Yes Desvenlafa ine 4-04 xine Succinate 00:00: Succinate ER 100 MG 00 ER 100 MG Oral Tablet Oral Extended Tablet Release 24 Extended Hour Release 24 Hour Quantity: 30 Refills: 0 Start : 12-Sep-2018 Active traZODone 0 Yes traZODone HCl - 150 4-04 HCl - 150 MG Oral 00:00: MG Oral Tablet 00 Tablet Quantity: 60 Refills: 0 Start : 12-Sep-2018 Active Desvenlafax Yes Desvenlafa ine 4-04 xine Succinate 00:00: Succinate ER 50 MG 00 ER 50 MG Oral Tablet Oral Extended Tablet Release 24 Extended Hour Release 24 Hour Quantity: 30 Refills: 0 Start : 12-Sep-2018 Active Victoza 18 Paula Corey QD Victoza 18 MG/3ML 4-04 [facility] MG/3ML Subcutaneou 00:00: Subcutaneo s Solution 00 us Pen-injecto Solution r Pen-inject or INJECT 1.8 MG Daily Quantity: 3 Refills: 1 Leora Quesada MD Start : 12-Sep-2018 Active 3 x 3 ML Pen Latuda 20 2018-0 Yes Latuda 20 MG Oral 4-04 MG Oral Tablet 00:00: Tablet 00 Quantity: 30 Refills: 0 Start : 12-Sep-2018 Active Estradiol 2 2018-0 Yes Estradiol MG Oral 4-01 2 MG Oral Tablet 00:00: Tablet 00 Quantity: 90 Refills: 0 Start : 09-Sep-2018 Active Vitamin D Yes Vitamin D (Ergocalcif 7-18 (Ergocalci tay) 1.25 00:00: ferol) MG (73827 00 1.25 MG UT) Oral (00260 UT) Capsule Oral Capsule TK 1 C PO ONCE A WEEK Quantity: 4 Refills: 0 Start : 8Active Ferrous Yes Ferrous Sulfate 325 Sulfate (65 Fe) MG 325 (65 Oral Tablet Fe) MG Oral Tablet Refills: 0 Active Problems Condition Condition Condition Status Onset Resolution Last Treatin g Comments Name Details Category Date Date Treatment Clinician Date Hoarseness Hoarseness Problem Active 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 Cerebral Cerebral Problem Active palsy palsy Diabetes Diabetes Problem Active mellitus mellitus Adalberto's Adalberto's Problem Active disease disease Hyperlipide Hyperlipide Problem Active marcela marcela Procedures Procedure Date / Time Performed Performing Clinician Trini tinsley US-Thyroid 2020-02-18 00:00:00 Free T4 2020-02-17 00:00:00 L - Thyroid Peroxidase (TPO) Ab 2020-02-17 00:00:00 TSH 2020-02-17 00:00:00 Blood Sugar 2019-12-26 00:00:00 HGBA1C 2019-12-26 00:00:00 CBC 2019-11-04 00:00:00 HGBA1C 2019-11-04 00:00:00 History of Gallbladder surgery History of Knee reconstruction History of Hysterectomy History of Breast surgery History of Eye surgery Results Test Description Test Time Test Comments Text Results Atomic Results Result Comments US-Thyroid 2020-03-08 11:40:00 An image is avaliable in [facility], click link to view image Thyroid Peroxidase (TPO) Ab 2020-03-08 11:27:00 Test Item Value Reference Range Comments Thyroid Peroxidase (TPO) Ab; Above High Threshold (test code = 3 52 {IU/mL} 0-34 8099-4) [facility] performed at: [] [address], [address], , Mirror Painter: Mai Akers [id number] 11:26:00 Test Item Value Reference Range Comments Free T4 (test code = Free T4) 1.71 ng/dL 0.78-2.19 Thyroid Stimulating [id number] 11:26:00 Test Item Value Reference Range Comments Thyroid Stimulating Hormone (test code = 0.74 {mIU/mL} 0.46-4. 68 Thyroid Stimulating Hormone) Blood [id number] 10:58:00 Test Item Value Reference Range Comments Blood Sugar (test code = Blood Sugar) 105 mg/dL 70-110 Blood sugar performed at nurse's station by Hali Florenceoglobin A1C 2019-12-30 10:58:00 Test Item Value Reference Range Comments Hemoglobin A1C (test code = 4548-4) 5.6 % 4.3-6.2 HgB A1C performed by nurse on DCA [id number] analyzer by Hali Vanessa CMP(Complete Metabolic Panel)2019-12-30 10:36:00 Test Item Value Reference Range Comments Glucose (test code = Glucose) 86 mg/dL 74-106 Sodium (test code = Sodium) 134 mmol/L 135-145 Potassium (test code = Potassium) 5.3 mmol/L 3.5-5.3 Chloride (test code = Chloride) 101 mmol/L 98-107 CO2 (test code = CO2) 28 mmol/L 22-30 Creatinine, serum (test code = Creatinine, serum) 1.00 mg/dL 0.10-1.04 Glomerular Filtration Rate (test code = >60 >60 Glomerular Filtration Rate) Glomerular Filtration Rate AA (test code = >60 >60 Glomerular Filtration Rate AA) Blood Urea Nitrogen (test code = Blood Urea 36 mg/dL 7-17 Nitrogen) Calcium (test code = Calcium) 9.3 mg/dL 8.4-10.5 Phosphorus (test code = Phosphorus) 3.6 mg/dL 2.5-4.5 Total Protein (test code = Total Protein) 6.7 g/dL 6.3-8. 2 Albumin (test code = 96098-2) 4.0 g/dL 3.5-5.0 Total Bilirubin (test code = Total Bilirubin) 0.4 mg/dL 0. 2-1.3 Bilirubin, unconj (test code = Bilirubin, unconj) 0.1 mg/dL 0.0-1.1 Bilirubin, Direct (test code = Bilirubin, Direct) 0.3 mg/dL 0.0-0.4 Alkaline Phosphatase (test code = Alkaline 58 U/L 20-15 0 Phosphatase) Alanine Transaminase (test code = Alanine 12 U/L 0-35 Transaminase) Aspartate Aminotransferase (test code = Aspartate 27 U/L 3-36 Aminotransferase) Thyroid Stimulating [id number] 10:36:00 Test Item Value Reference Range Comments Thyroid Stimulating Hormone (test code = 0.40 {mIU/mL} 0.46-4. 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 Diabetes mellitus Active Cerebral palsy Active Encounters Start End Encounter Admission Attending Care Care Encounter Date/Time Date/Time Type Type Clinicians Facility Department ID 2020-03-08 2020-03-08 Appointment; [facility] [id number] 12:15:00 12:15:00 Santi Tilley 2020-03-08 2020-03-08 Appointment; [facility] [id number] 11:15:00 11:15:00 Ultrasound Room 1, Gianni tinsley MD 2019-12-30 2019-12-30 Appointment; SUZY Quesada [facility] [id number] 10:10:00 10:10:00 Leora Quesada MD 2019-08-25 2019-08-25 Appointment; [facility] [id number] 10:30:00 10:30:00 Robb Lemon D.O. 2019-08-25 2019-08-25 Appointment; [facility] [id number] 10:15:00 10:15:00 Santi Tilley 2019-06-27 2019-06-27 Appointment; NARCISO QuesadaANDREW [facility] [id number] 13:50:00 13:50:00 Leora Quesada MD 2019-03-14 2019-03-14 Appointment; [facility] [id number] 09:50:00 09:50:00 [facility] 2019-03-10 2019-03-10 Appointment; [facility] [id number] 10:00:00 10:00:00 Esteban Dorantes MD 2019-02-04 2019-02-04 Appointment; [facility] [id number] 11:00:00 11:00:00 Esteban Dorantes MD Family History Family Member Diagnosis Comments Start Date Stop Date Mother Family history of Mother Family history of diabetes mellitus Mother Family history of goiter Mother Family history of hyperlipidemia Mother Family history of hypertension Mother Family history of coronary artery disease Father Family history of Father Family history of malignant neoplasm Brother Family history of hypertension Plan of Treatment Planned Activity Planned Date Details Comments Future Scheduled Test [code = ] Future Scheduled Test [code = ] Social History Smoking Status Start Date Stop Date Never smoked tobacco (finding) Vital Signs Vital Name Observation Time Observation Value Comments Systolic blood pressure 2019-12-30 10:13:00 112 mm[Hg] Diastolic blood pressure 2019-12-30 10:13:00 28 mm[Hg] Body temperature 2019-12-30 10:13:00 98 [degF] Heart Rate 2019-12-30 10:13:00 88 /min Hospital Discharge Instructions NameDatesDetailsInstructions not documentedNameDatesDetailsInstructions not documented
== END ==
LOC: OD 10:11
PROVIDERS: ATTEND Internal Medicine Nephrology
DX: N39.0 Urinary tract infection, site not specified (principal)
CPT/HCPCS: 81001; 87086

== ENCOUNTER → 2020-06-24 | Outpatient (CLI) | payer MEDICARE, MEDICAID | LOC: OD 10:16 | PROVIDERS: ATTEND Physician Assistant Medical | DX: Z53.9 Procedure and treatment not carried out, unspecified reason (principal) ==